=== PATIENT | male | born 1960 | race Caucasian/White ===

== ENCOUNTER 2022-07-11 09:44 | Emergency (ER) | payer MEDICARE, SELFPAY ==
[2022-07-11 10:09] VITALS: BP 137/83; PULSE 69; RESP 16; TEMP 37; O2SAT 98; BMI 25.8
--- NOTE | 2022-07-11 10:21 | XRR_ITS ---
PROCEDURE INFORMATION: Exam: XR Chest Exam date and time: 07/11/2022 10:35 AM Age: 62 years old Clinical indication: Pain; Angina pectoris; Additional info: Chest pain TECHNIQUE: Imaging protocol: Radiologic exam of the chest. Views: 1 view. COMPARISON: No relevant prior studies available. FINDINGS: Lungs: Unremarkable. No consolidation. Pleural spaces: Unremarkable. No pleural effusion. No pneumothorax. Heart/Mediastinum: Unremarkable. No cardiomegaly. Bones/joints: Unremarkable. XR/XR chest 1V portable [id number] IMPRESSION: No acute findings.
--- NOTE | 2022-07-11 10:27 | ECG_ITS ---
[facility] Test Date: 2022-07-11 Pat Name: Haroon Brock Department: Room: Gender: Male Manager Meeting: : 1960 Requested By: Clifford Wu Order Number: [id number] Mark MD: Fransisco Anderson M.D. Measurements Intervals [place] Rate: 69 P: 72 [place]: 180 QRS: -60 QRSD: 121 T: 44 QT: 363 QTc: 391 Interpretive Statements SINUS RHYTHM RIGHT BUNDLE BRANCH BLOCK [120+ ms QRS DURATION, UPRIGHT V1, 40+ ms S IN I/aVL/V4/V5/V6] LEFT ANTERIOR FASCICULAR BLOCK [QRS AXIS <= -45, QR IN I, RS IN II] POSSIBLE ANTERIOR MYOCARDIAL INFARCTION , OF INDETERMINATE AGE [30 ms Q WAVE IN V3/V4, OR R < 0.2 mV IN V4] No previous ECG available for comparison Electronically Signed On 07-11-2022 14:54:25 CDT by Fransisco Anderson M.D. [id number]
[2022-07-11 10:35] LABS: Basophils # 0.1 10^3/uL (0.0-0.1); Eosinophils # 0.7 10^3/uL (0.0-0.8); Eosinophils % 6.9 %; Hematocrit 45.6 % (42.0-52.0); Mean Corpuscular HGB Conc 32.9 g/dL (30.0-36.0); Mean Corpuscular Hemoglobin 30.9 pg (28.0-34.0); Mean Corpuscular Volume 93.8 fl (80-94); Mean Platelet Volume 10.2 fL (7.4-10.4); Monocytes # 0.6 10^3/uL (0.2-0.9); Monocytes % 5.6 %; Neutrophils # 7.74 10^3/uL (1.8-7.7); Neutrophils % 76.2 %; Nucleated Red Blood Cells % 0 %; Platelet Count 264 10^3/cmm (130-400); Red Blood Count 4.86 10^6/uL (4.1-5.3); Red Cell Distribution Width 13.5 % (12.1-15.1); White Blood Count 10.2 10^3/uL (4.0-10.0)
[2022-07-11] MEDS: aspirin 81 mg Chew Tablet 324 MG PO (10:35)
[2022-07-11] MEDS: nitroglycerin 1 gm/inch oint Pkt 1 INCH TOPICAL (10:35)
[2022-07-11 10:44] VITALS: BP 126/88; PULSE 62; O2SAT 96
[2022-07-11 10:58] LABS: Alanine Aminotransferase 17 U/L (0-41); Albumin Level 3.7 g/dL (3.5-5.2); Alkaline Phosphatase 129 U/L (40-130); Anion Gap 13.3 (5-19); Aspartate Amino Transferase 21 U/L (0-40); Blood Urea Nitrogen 15 mg/dL (8-23); Calcium 8.9 mg/dL (8.5-10.5); Carbon Dioxide 27 mmol/L (22-29); Chloride 104 mmol/L (98-107); Globulin 3.3 g/dL (1.3-4.6); Glomerular Filtration Rate 75.7 mL/min (90-130); Glucose 102 mg/dL (65-115); Osmolality Calculated 291 mOsm/kg (285-295); Potassium 4.3 mmol/L (3.5-5.1); Sodium 140 mmol/L (136-145); Total Bilirubin 0.3 mg/dL (0.15-1.2)
[2022-07-11 10:59] LABS: Troponin(5th) Baseline 10 ng/L (0-15)
--- NOTE | 2022-07-11 11:25 | ED_ITS ---
HPI - Chest Pain General: Chief Complaint: Chest Pain Stated Complaint: cp Time Seen by Provider: 07/11/22 10:57 Source: patient and family Mode of arrival: ambulatory Limitations: no limitations History of Present Illness: This patient presents to our emergency department because of concerns about chest pain. He states the chest pain has been present since yesterday. He states its mostly right central with some involvement of his right arm. He states the onset was yesterday he does not recall what he was doing exactly but it was normal activities walking around according to him. He states that the pain seems to worsen with breathing deep. He has had increasing cough over the past number of days. It the cough has been nonproductive and is not any documented fevers. He was a previous smoker. Does have a history of coronary artery disease had stents placed in 5 separate locations. The last was several years ago but he still takes a NOAC. Dates he had COVID in 2019 and has not received any subsequent immunizations. He has not had a flu vaccine. No one else is ill at home. He does relate that he was working on his car yesterday changing spark plugs which did involve him bending over and working on the engine. Denies denies any falls or other trauma. No nausea vomiting diap horesis etc. MD complaint: chest pain Pertinent past history: coronary artery disease and prior [place] Pain location: right chest Pain radiation: right arm Severity: mild Quality: dull Associated symptoms: Reports no associated symptoms; Deny abdominal pain, fever(s), nausea, palpitations, syncope or vomiting Risk Factors: Coronary artery disease risk factors: diabetes Review of Systems Const: Denies: fever(s) or chills Eyes: Denies: change in vision ENMT: Reports: throat pain; Denies: odynophagia or nasal discharge Card: Denies: palpitations, edema, swelling of feet/ankles, syncope or pre- syncope Resp: Reports: non-productive cough; Denies: wheezing or stridor GI: Denies: abdominal pain, nausea, vomiting or diarrhea : Denies: flank pain, difficulty urinating, dysuria or urinary frequency Musc: Denies: neck pain, back pain, extremity pain or extremity swelling Skin/Breast: Denies: rash or pruritus Neuro: Denies: headache(s), numbness in extremities or weakness in extremities Psych: Denies: anxiety or depression Endo: Denies: polyuria or polydipsia Allen/Lymph: Reports: easy bruising Physical Exam Narrative: EXAM NARRATIVE: Patient appears comfortable makes good eye contact speech is goal-directed. Const: COMMON NORMALS: no acute distress, average body habitus, patient oriented x3 and healthy appearing GENERAL APPEARANCE: cooperative and comfortable HENMT: COMMON NORMALS: normocephalic, Normal external nose present, Normal nasal mucous membranes and turbinates present, moist oral mucous membranes and oropharynx normal HEAD & SCALP: normocephalic NOSE: Normal external nose present and Normal nasal mucous membranes and turbinates present Eye: COMMON NORMALS: Equal, round and reactive pupils present, EOMs intact bilaterally and conjunctivae normal CONJUNCTIVA: Yes conjunctivae normal PUPIL: Yes Equal, round and reactive pupils present Neck/C-Spine: COMMON NORMALS: full ROM, no lymphadenopathy, supple, Thyroid no rmal and No carotid bruits THYROID: Thyroid normal Chest: COMMONS NORMALS: normal inspection of the chest OTHER: Tenderness right ches with palpation predominantly over the right side of the sternum and costochondral junction. Elevation of his right arm to greater than 45 degrees of abduction and also reproduces symptoms. Resp: COMMON NORMALS: normal respiratory effort, No retractions, No use of accessory muscles and clear to auscultation bilaterally AUSCULTATION: clear to auscultation bilaterally Cardio: COMMON NORMALS: regular rate, regular rhythm, No murmurs present (Cardio) and Peripheral pulses 2+ throughout RATE: regular rate RHYTHM: regular rhythm PERIPHERAL PULSES: Peripheral pulses 2+ throughout GI: COMMON NORMALS: Normal to inspection, nondistended, normoactive bowel sounds present, Soft to palpation and non-tender PALPATION: Yes Soft to palpation : COMMON NORMALS: Yes no CVA tenderness BLADDER/KIDNEY EXAM: Yes no CVA tenderness Back/Pelvis: COMMON NORMALS: no CVA tenderness, thoracic and lumbar spine normal to inspection, no thoracic nor lumbar tenderness, thoraco-lumbar ROM normal and straight leg raise negative bilaterally Extremity: COMMON NORMALS: normal to inspection, full ROM, capillary refill normal, no clubbing, cyanosis or edema, no calf tenderness and no pedal edema Neuro: COMMON NORMALS: patient oriented x3, moves all extremities, no focal motor deficits and no sensory deficits noted Psych: COMMON NORMALS: mental status grossly normal and cooperative Skin: COMMON NORMALS: no rashes or lesions noted, no wounds, turgor normal and no petechiae GENERAL SKIN EXAM: no rashes or lesions noted and turgor normal Course Vital Signs: Vital signs: Vital Signs Temperature 98.6 F 07/11/22 10:09 Pulse Rate 69 07/11/22 10:09 Respiratory Rate 16 07/11/22 10:09 Blood Pressure 137/83 07/11/22 10:09 Pulse Oximetry 98 07/11/22 10:09 Oxygen Delivery Me thod 07/11/22 10:09 MDM - Chest Pain Medical Decision Making This patient with known history of coronary artery disease presented to our emergency department with greater than 12-hour history of right-sided chest pain with right arm pain. Work-up in the emergency department today reveals reassuring and unchanged serial EKGs as well as negative serial biomarkers in the emergency department. On clinical examination he does have reproducibility of symptoms suggestive of possible musculoskeletal component which she has furt her strength and by his history of having worked on his engine yesterday which undoubtedly and admittedly by him involved bending over and being in awkward positions while changing spark plugs. He is at low risk for thromboembolic issues as he is currently on a DOAC and has had no history of similar issues. No other findings today of worry. I have reassured both he and spouse that at this point time he has extremely low risk of ACS etc. Advised continued observation at home and return immediately for any changing pain, persistent pain, develop a fever dyspnea with exertion chest pain with activity etc. They voiced understanding are stable for discharge at this time. Medical Records I reviewed the patient's medical records. Lab Data I reviewed the patient's lab results. : 07/11/22 10:27 07/11/22 10:27 Radiology Impressions Chest X-Ray 07/11/22 10:21 IMPRESSION: No acute findings. Laboratory Results WBC 10.2 10^3/uL (4.0-10.0) H 07/11/22 10: RBC 4.86 10^6/uL (4.1-5.3) 07/11/22 10: Hgb 15.0 g/dL (11.7-16.6) 07/11/22 10: Hct 45.6 % (42.0-52.0) 07/11/22 10: MCV 93.8 fl (80-94) 07/11/22 10: MCH 30.9 pg (28.0-34.0) 07/11/22 10: MCHC 32.9 g/dL (30.0-36.0) 07/11/22 10: RDW 13.5 % (12.1-15.1) 07/11/22 10: Plt Count 264 10^3/cmm (130-400) 07/11/22 10: MPV 10.2 fL (7.4-10.4) 07/11/22 10:27 Neut % (Auto) 76.2 % 07/11/22 10:27 Lymph % (Auto) 10.0 % 07/11/22 10:27 [place] % (Auto) 5.6 % 07/11/22 10:27 Eos % (Auto) 6.9 % 07/11/22 10:27 Baso % (Auto) 1.0 % 07/11/22 10: Neut # (Auto) 7.74 10^3/uL (1.8-7.7) H 07/11/22 10:27 Lymph # (Auto) 1.0 10^3/uL (0.8-4.8) 07/11/22 10:27 [place] # (Auto) 0.6 10^3/uL (0.2-0.9) 07/11/22 10:27 Eos # (Auto) 0.7 10^3/uL (0.0-0.8) 07/11/22 10:27 Baso # (Auto) 0.1 10^3/uL (0.0-0.1) 07/11/22 10:27 Nucleated RBC % (auto) 0 % 07/11/22 10:27 Nucleated RBCs # 0.0 /100WBC 07/11/22 10:27 Sodium 140 mmol/L (136-145) 07/11/22 10:27 Potassium 4.3 mmol/L (3.5-5.1) 07/11/22 10: Chloride 104 mmol/L (98-107) 07/11/22 10: Carbon Dioxide 27 mmol/L (22-29) 07/11/22 10:27 Anion Gap 13.3 (5-19) 07/11/22 10:27 BUN 15 mg/dL (8-23) 07/11/22 10: Creatinine 1.0 mg/dL (0.7-1.2) 07/11/22 10:27 GFR Calculation 75.7 mL/min (90-130) L 07/11/22 10:27 Glucose 102 mg/dL (65-115) 07/11/22 10:27 Calculated Osmolality 291 mOsm/kg (285-295) 07/11/22 10:27 Calcium 8.9 mg/dL (8.5-10.5) 07/11/22 10:27 Total Bilirubin 0.3 mg/dL (0.15-1.2) 07/11/22 10: AST 21 U/L (0-40) 07/11/22 10:27 ALT 17 U/L (0-41) 07/11/22 10:27 Alkaline Phosphatase 129 U/L (40-130) 07/11/22 10: Troponin T Baseline 10 ng/L (0-15) 07/11/22 10:27 Troponin T 120 Minute 11.18 ng/L (0-15) 07/11/22 12:28 Total Protein 7.0 g/dL (6.6-8.7) 07/11/22 10:27 Albumin 3.7 g/dL (3.5-5.2) 07/11/22 10:27 Globulin 3.3 g/dL (1.3-4.6) 07/11/22 10:27 EKG Data EKG 1: I personally reviewed and interpreted this EKG as follows: Interpretation: Resting EKG reveals a heart rate of 69 bpm. Normal intervals, normal axis. Has a right bundle branch block pattern noted as well as findings suggestive of a left anterior Heema block. No acute ST-T wave changes noted. No prior tracings available in the system. EKG 2: I personally reviewed and interpreted this EKG as follows: Interpretation: Second EKG this visit reveals unchanged appearance with a ventricular rate of 67 bpm normal intervals. Normal QRS normal QTC. Has a leftward axis consistent with right bundle branch block with left anterior Heema block. No acute or changing ST segments noted at this time. Discharge Plan Discharge Patient Disposition: Home Clinical Impression: Chest pain Condition: Stable Prescriptions: No Action bupropion HCl 150 mg Tablet Sustained-Release 12 Hr 150 mg PO BID atorvastatin 80 mg Tablet 80 mg PO QPM Pepcid 20 mg Tablet 20 mg PO DAILY Iron (ferrous sulfate) 325 mg (65 mg iron) Tablet 325 mg PO DAILY Nitrostat 0.4 mg Tablet, Sublingual 0.4 mg SUBLINGUAL Q5M PRN (Reason: Chest Pain) Rx Instructions: do not exceed 3 doses per episode metoprolol succinate 25 mg Tablet Extended Release 24 Hr 25 mg PO BEDTIME metformin 500 mg Tablet Extended Release 24 Hr 500 mg PO DAILY Super B Complex Capsule 1 cap PO DAILY Co Q-10 100 mg Capsule 100 mg PO QPM Vitamin D3 50 mcg (2,000 unit) Capsule 50 mcg PO DAILY prasugrel 10 mg Tablet 10 mg PO DAILY copper gluconate 2 mg Capsule 2 mg PO DAILY aspirin 325 mg Capsule 325 mg PO DAILY Men's 50 Plus Multivitamin 400-20-370 mcg Tablet 1 tab PO DAILY Discharge Orders: Discharge ED (Routine); Ordered 07/11/22 Ordered By: Maxime Scott Referrals: Tiffanie Mcgovern MD [Physician] - 1 month (ED referral for CAD) Discharge Diet: Usual diet Discharge Activity: Resume usual activity Patient Instructions: Opioid Safety, Pain Management Activity Restrictions/Additional Instructions: Continue all your usual medications. You may use acetaminophen or Tylenol in the usual over the counter doses for any musculoskeletal pains. If you develop increasing, changing pain or other symptoms as we discussed such as difficulty breathing, fever etc. return to this or the nearest emergency department immediately. Coding Level of Care Code ED [place] Presser for [facility] Exam Comprehensive
[2022-07-11 11:44] VITALS: PULSE 70; O2SAT 95
--- NOTE | 2022-07-11 12:47 | ECG_ITS ---
[facility] Test Date: 2022-07-11 Pat Name: Haroon Brock Department: Room: Gender: Male Cpa Tax: : 1960 Requested By: Clifford Wu Order Number: [id number] Reading MD: Fransisco Anderson M.D. Measurements Intervals [place] Rate: 67 P: 59 DC: 176 QRS: -73 QRSD: 140 T: 44 QT: 392 QTc: 414 Interpretive Statements SINUS RHYTHM RIGHT BUNDLE BRANCH BLOCK [120+ ms QRS DURATION, UPRIGHT V1, 40+ ms S IN I/aVL/V4/V5/V6] LEFT ANTERIOR FASCICULAR BLOCK [QRS AXIS <= -45, QR IN I, RS IN II] POSSIBLE ANTERIOR MYOCARDIAL INFARCTION , OF INDETERMINATE AGE [30 ms Q WAVE IN V3/V4, OR R < 0.2 mV IN V4] Compared to ECG 07/11/2022 10:18:15 No significant changes Electronically Signed On 07-11-2022 14:57:41 CDT by Fransisco Anderson M.D. [id number]
[2022-07-11 12:55] LABS: Troponin 5 2HR 11.18 ng/L (0-15)
[2022-07-11] MEDS: ketorolac 30 mg/mL INJ 15 MG IVP (13:09)
[2022-07-11 13:13] LABS: Troponin 5 2HR Delta 1.18 ABS# (0-10)
[2022-07-11 13:23] VITALS: BP 114/70; PULSE 72; O2SAT 94
== END 2022-07-11 13:22 | disposition home or self-care (01) ==
PROVIDERS: Family Medicine; Emergency Provider Emergency Medicine
DX: R07.9 Chest pain, unspecified (principal); Z79.82 Long term (current) use of aspirin; Z79.84 Long term (current) use of oral hypoglycemic drugs
CPT/HCPCS: 36415; 71045; 80053; 84484; 85025; 93005; 96374; 99285; J1885

== ENCOUNTER 2022-07-17 12:43 | Emergency (ER) | payer MEDICARE, SELFPAY ==
[2022-07-17] VITALS (7 sets, daily range): BP systolic 119–140; BP diastolic 81–89; PULSE 88–118; RESP 17–25; TEMP 36.4; O2SAT 93–96; BMI 25.8
--- NOTE | 2022-07-17 13:01 | CTR_ITS ---
PROCEDURE INFORMATION: Exam: CTA Chest With Contrast Exam date and time: 07/17/2022 2:42 PM Age: 62 years old Clinical indication: Other: Hemoptysis TECHNIQUE: Imaging protocol: Computed tomographic angiography of the chest with contrast. 3D rendering (Not supervised by radiologist): MIP and/or 3D reconstructed images were created by the technologist. Radiation optimization: All CT scans at this facility use at least one of these dose optimization techniques: automated exposure control; mA and/or kV adjustment per patient size (includes targeted exams where dose is matched to clinical indication); or iterative reconstruction. Contrast material: OMNI 350; Contrast volume: 82 ml; Contrast route: INTRAVENOUS (IV); COMPARISON: CR XR chest 1V portable [id number] 07/11/2022 10:35 AM RADIATION DOSE METRICS: Total DLP (mGy-cm): 348.39 FINDINGS: Pulmonary arteries: Normal. No pulmonary emboli. Aorta: Unremarkable. No aortic aneurysm. No aortic dissection. 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 Pleural spaces: Unremarkable. No pneumothorax. No pleural effusion. Heart: Severe calcified coronary artery disease. Proximal LAD endovascular stent. Lymph nodes: Unremarkable. No enlarged lymph nodes. Stomach and bowel: Previous gastroplasty. Bones/joints: Unremarkable. No acute fracture. Soft tissues: Unremarkable. CT/CT angio chest PE protcl [id number] IMPRESSION: 1. 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 2. Severe calcified coronary artery disease. 3. Proximal LAD endovascular stent.
--- NOTE | 2022-07-17 13:01 | XRR_ITS ---
PROCEDURE INFORMATION: Exam: XR Chest Exam date and time: 07/17/2022 2:48 PM Age: 62 years old Clinical indication: Cough with hemorrhage TECHNIQUE: Imaging protocol: Radiologic exam of the chest. Views: 1 view. COMPARISON: CR XR chest 1V portable [id number] 07/11/2022 10:35 AM FINDINGS: Lungs: Left lower lobe pneumonia behind the left heart. Pleural spaces: Unremarkable. No pleural effusion. No pneumothorax. Heart/Mediastinum: Unremarkable. No cardiomegaly. Bones/joints: Unremarkable. XR/XR chest 1V portable [id number] IMPRESSION: Left lower lobe pneumonia behind the left heart.
--- NOTE | 2022-07-17 13:03 | ED_ITS ---
HPI - SOB/Dyspnea General: Chief Complaint: Shortness of Breath/Dyspnea Stated Complaint: SOB, Coughing up blood Time Seen by Provider: 07/17/22 12:54 History of Present Illness: HPI Narrative: 62-year-old male with a history of coronary artery disease with multiple stents, currently on aspirin and Brilinta who presents with a 3-week history of a productive cough. The cough was initially productive of green sputum but now for the past 24 hours, he has had gross hemoptysis. Today he started coughing up clots of blood. He is also been having midsternal chest pain, different than his cardiac pain. He has been having chills and sweats. No prior history of DVT or pulmonary embolism. He is a past smoker. He is also diabetic. Associated symptoms: Reports chest pain and hemoptysis Review of Systems General: Reports: ROS unobtainable due to medical condition Card: Reports: chest pain Resp: Reports: dyspnea, productive cough and hemoptysis Physical Exam Const: COMMON NORMALS: healthy appearing, alert and well nourished; apparent distress OTHER: patient is violently coughing HENMT: COMMON NORMALS: normocephalic, atraumatic, moist oral mucous membranes and oropharynx normal HEAD & SCALP: normocephalic and atraumatic Neck/C-Spine: GENERAL: Yes normal visual inspection and Yes trachea midline Resp: COMMON NORMALS: negative for normal respiratory effort EFFORT & INSPECTION: Yes tachypneic, Yes respiratory distress, Yes Actively coughing and Yes audible wheezes AUSCULTATION: diminished lung sounds Cardio: COMMON NORMALS: regular rhythm, S1 normal heart sound present and S2 normal heart sound present RATE: tachycardic RHYTHM: regular rhythm HEART SOUNDS: S1 normal heart sound present and S2 normal heart sound present Extremity: GENERAL: No calf tenderness and No edema Neuro: SENSORIUM/ORIENTATION: Yes alert Skin: GENERAL SKIN EXAM: other (diaphoretic) Course ED course: Patient's been given an IV fluid bolus, 30 cc/kg. Heart rate and blood pressure have normalized. His heart rate is in the 90s now. He has been given IV cefepime and Zithromax. Chest x-ray he does have a left lower lobe infiltrate. 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 The patient's hemoptysis has stopped after TXA and cough suppressants including morphine and Tessalon. Patient is still continuing to have difficulty breathing despite IV steroids and a breathing treatment. We will repeat his DuoNeb nebulizer treatments. With the gross hemoptysis and sepsis, the patient will need transfer to a facility with pulmonary and bronchoscopy capabilities. I have contacted [facility]. Reevaluation(s): Reevaluation #1: Coughing has improved after IV morphine and a DuoNeb nebulizer treatment. Saturations remained stable. Heart rate has improved a little. Time: 13:42 Consultations: Consultation #1: Discussed with pulmonology here who is concerned that we do not have emergent bronchoscopy or interventional radiology available today. He agrees that the patient needs transfer Time: 16:03 Consultation #2: Spoke with Dr. Feliciano at [facility] ICU who accepts the patient for direct admission Time: 16:07 Vital Signs: Vital signs: Vital Signs Temperature 97.6 F 07/17/22 12:46 Pulse Rate 118 H 07/17/22 12:46 Respiratory Rate 25 H 07/17/22 14:48 Blood Pressure 140/89 07/17/22 12:46 Pulse Oximetry 96 07/17/22 12:46 Oxygen Delivery Me thod 07/17/22 12:46 MDM - SOB/Dyspnea Medical Decision Making 62-year-old male who presents with gross hemoptysis. The patient is in acute respiratory distress, tachypneic and tachycardic, room air saturations are stabl e at 97%. Will start on IV, give him some morphine to help suppress his cough as well as IV Solu-Medrol and Tessalon Perles. We will also give him a DuoNeb nebulizer treatment. The patient will need a chest x-ray and a CTA to rule out pulmonary emboli, tumors or possible infections and/or other etiologies of his hemoptysis. If his gross hemoptysis continues, the patient may need transfer for bronchoscopy capabilities. With the patient on aspirin and Brilinta, will give IV TXA to help control his hemoptysis. Differential Diagnosis Likely acute exacerbation of chronic obstructive airways disease, congestive heart failure, community acquired pneumonia, asthma with exacerbation and pulmonary embolism Lab Data Patient is a leukocytosis with a white blood cell count of 13.6. He is also got an elevated lactic acid of 5.3. CRP is elevated at 29.7. Hemoglobin is normal at 15.5, hematocrit 47.7. Platelet count is normal at 335. Electrolytes are normal. BUN 14, creatinine 1.0. : 07/17/22 13:19 07/17/22 13:19 Labs/Radiology: Radiology Impressions Chest CTA 07/17/22 13:01 IMPRESSION: 1. 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 2. Severe calcified coronary artery disease. 3. Proximal LAD endovascular stent. Chest X-Ray 07/17/22 13:01 IMPRESSION: Left lower lobe pneumonia behind the left heart. Laboratory Results WBC 13.6 10^3/uL (4.0-10.0) H 07/17/22 13:19 RBC 5.20 10^6/uL (4.1-5.3) 07/17/22 13:19 Hgb 15.5 g/dL (11.7-16.6) 07/17/22 13:19 Hct 47.7 % (42.0-52.0) 07/17/22 13:19 MCV 91.7 fl (80-94) 07/17/22 13:19 MCH 29.8 pg (28.0-34.0) 07/17/22 13:19 MCHC 32.5 g/dL (30.0-36.0) 07/17/22 13:19 RDW 13.1 % (12.1-15.1) 07/17/22 13:19 Plt Count 335 10^3/cmm (130-400) 07/17/22 13:19 MPV 10.1 fL (7.4-10.4) 07/17/22 13:19 Neut % (Auto) 69.5 % 07/17/22 13:19 Lymph % (Auto) 18.1 % 07/17/22 13:19 [place] % (Auto) 7.8 % 07/17/22 13:19 Eos % (Auto) 3.3 % 07/17/22 13:19 Baso % (Auto) 0.7 % 07/17/22 13:19 Neut # (Auto) 9.45 10^3/uL (1.8-7.7) H 07/17/22 13:19 Lymph # (Auto) 2.5 10^3/uL (0.8-4.8) 07/17/22 13:19 [place] # (Auto) 1.1 10^3/uL (0.2-0.9) H 07/17/22 13:19 Eos # (Auto) 0.5 10^3/uL (0.0-0.8) 07/17/22 13:19 Baso # (Auto) 0.1 10^3/uL (0.0-0.1) 07/17/22 13:19 Nucleated RBC % (auto) 0 % 07/17/22 13:19 Nucleated RBCs # 0.0 /100WBC 07/17/22 13:19 Sodium 140 mmol/L (136-145) 07/17/22 13:19 Potassium 4.8 mmol/L (3.5-5.1) 07/17/22 13:19 Chloride 102 mmol/L (98-107) 07/17/22 13:19 Carbon Dioxide 21 mmol/L (22-29) L 07/17/22 13:19 Anion Gap 21.8 (5-19) H 07/17/22 13:19 BUN 14 mg/dL (8-23) 07/17/22 13:19 Creatinine 1.0 mg/dL (0.7-1.2) 07/17/22 13:19 GFR Calculation 75.7 mL/min (90-130) L 07/17/22 13:19 Glucose 124 mg/dL (65-115) H 07/17/22 13:19 Calculated Osmolality 292 mOsm/kg (285-295) 07/17/22 13:19 Lactic Acid 5.3 mmol/L (0.5-2.2) H* 07/17/22 13:19 Lactic Acid (Sepsis) 2.8 mmol/L (0.5-2.2) H 07/17/22 15:47 Calcium 9.9 mg/dL (8.5-10.5) 07/17/22 13:19 Total Bilirubin 0.5 mg/dL (0.15-1.2) 07/17/22 13:19 AST 27 U/L (0-40) 07/17/22 13:19 ALT 22 U/L (0-41) 07/17/22 13:19 Alkaline Phosphatase 124 U/L (40-130) 07/17/22 13:19 C-Reactive Protein 29.7 mg/L (0.0-4.9) H 07/17/22 13:19 NT-Pro-B Natriuret Pep 66 pg/mL (0-125) 07/17/22 13:19 Total Protein 8.1 g/dL (6.6-8.7) 07/17/22 13:19 Albumin 4.1 g/dL (3.5-5.2) 07/17/22 13:19 Globulin 4.0 g/dL (1.3-4.6) 07/17/22 13:19 Blood Type A Positive 07/17/22 13:30 Rho(D) Type Positive 07/17/22 13:30 Antibody Screen Negative 07/17/22 13:30 Critical Care Time Critical Care Time: Critical Care Time: Yes Total Critical Care Time: 90 Attestation: Rectal care time involves evaluation of the patient, obtaining history from the patient and his , ordering tests and evaluating the results, reevaluating the patient, managing hemodynamic instability as well as sepsis and hemorrhage. Discussing with consultants and transferring facility Discharge Plan Discharge Patient Disposition: Xfer Intermediate Care Fac Clinical Impression: Major hemoptysis, Pneumonia, Sepsis Condition: Stable Prescriptions: No Action bupropion HCl 150 mg Tablet Sustained-Release 12 Hr 150 mg PO BID atorvastatin 80 mg Tablet 80 mg PO QPM famotidine [Pepcid] 20 mg Tablet 20 mg PO DAILY ferrous sulfate [Iron (ferrous sulfate)] 325 mg (65 mg iron) Tablet 325 mg PO DAILY nitroglycerin [Nitrostat] 0.4 mg Tablet, Sublingual 0.4 mg SUBLINGUAL Q5M PRN (Reason: Chest Pain) Rx Instructions: do not exceed 3 doses per episode metoprolol succinate 25 mg Tablet Extended Release 24 Hr 25 mg PO BEDTIME metformin 500 mg Tablet Extended Release 24 Hr 500 mg PO DAILY vitamin B complex [Super B Complex] Capsule 1 cap PO DAILY coenzyme Q10 [Co Q-10] 100 mg Capsule 100 mg PO QPM cholecalciferol (vitamin D3) [Vitamin D3] 50 mcg (2,000 unit) Capsule 50 mcg PO DAILY prasugrel 10 mg Tablet 10 mg PO DAILY copper gluconate 2 mg Capsule 2 mg PO DAILY aspirin 325 mg Capsule 325 mg PO DAILY Men's 50 Plus Multivitamin 400-20-370 mcg Tablet 1 tab PO DAILY Coding Level of Care Code ED 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
[2022-07-17] MEDS: ondansetron 2 mg/ML SDV 2 mL 4 MG IVP (13:24)
[2022-07-17 13:29] LABS: Basophils # 0.1 10^3/uL (0.0-0.1); Basophils % 0.7 %; Eosinophils # 0.5 10^3/uL (0.0-0.8); Eosinophils % 3.3 %; Hematocrit 47.7 % (42.0-52.0); Hemoglobin 15.5 g/dL (11.7-16.6); Lymphocytes # 2.5 10^3/uL (0.8-4.8); Lymphocytes % 18.1 %; Mean Corpuscular HGB Conc 32.5 g/dL (30.0-36.0); Mean Corpuscular Hemoglobin 29.8 pg (28.0-34.0); Mean Corpuscular Volume 91.7 fl (80-94); Mean Platelet Volume 10.1 fL (7.4-10.4); Monocytes # 1.1 10^3/uL (0.2-0.9); Monocytes % 7.8 %; Neutrophils # 9.45 10^3/uL (1.8-7.7); Neutrophils % 69.5 %; Nucleated Red Blood Cells % 0 %; Platelet Count 335 10^3/cmm (130-400); Red Cell Distribution Width 13.1 % (12.1-15.1); White Blood Count 13.6 10^3/uL (4.0-10.0)
[2022-07-17] MEDS: morphine 4 mg/mL SDV 1 mL IVP ×4 (13:31→19:05)
[2022-07-17] MEDS: iohexol 350 mg/mL 500 mL Btl (per mL) IV (13:46)
--- NOTE | 2022-07-17 13:57 | PC.NURSE ---
Patient on continuous CM and Sp02 at bedside.
[2022-07-17 13:58] LABS: Lactic Sepsis W/Reflex 5.3 mmol/L (0.5-2.2)
[2022-07-17 14:02] LABS: Alanine Aminotransferase 22 U/L (0-41); Albumin Level 4.1 g/dL (3.5-5.2); Alkaline Phosphatase 124 U/L (40-130); Aspartate Amino Transferase 27 U/L (0-40); Blood Urea Nitrogen 14 mg/dL (8-23); C Reactive Protein 29.7 mg/L (0.0-4.9); Calcium 9.9 mg/dL (8.5-10.5); Carbon Dioxide 21 mmol/L (22-29); Chloride 102 mmol/L (98-107); Glomerular Filtration Rate 75.7 mL/min (90-130); Glucose 124 mg/dL (65-115); NT Pro B Type Natriuretic Pept 66 pg/mL (0-125); Osmolality Calculated 292 mOsm/kg (285-295); Sodium 140 mmol/L (136-145); Total Bilirubin 0.5 mg/dL (0.15-1.2); Total Protein 8.1 g/dL (6.6-8.7)
[2022-07-17 14:04] LABS: Anion Gap 21.8 (5-19); Potassium 4.8 mmol/L (3.5-5.1)
[2022-07-17] MEDS: azithromycin 500 MG in sodium chloride 0.9% 250 ML 250 MG IV (14:38)
[2022-07-17] MEDS: cefepime 2,000 MG in sodium chloride 0.9% (plus) 50 ML 100 MG IV (14:48)
[2022-07-17] MEDS: benzonatate 100 mg Capsule 200 MG PO (14:53)
[2022-07-17 15:04] LABS: Reflex Lactate Order REFLEX LACTIC ORDERD
[2022-07-17 16:07] LABS: Lactic Acid level (Lactate) 2.8 mmol/L (0.5-2.2)
[2022-07-17] MEDS: sodium chloride 0.9% 2,313.33 ML 2313.33 ML IV (16:09)
[2022-07-17 17:36] LABS: Adenovirus Not Detected (NOT DETECT); Chlamydia Pneumoniae Not Detected (NOT DETECT); Coronavirus 229E,HKU1,NL63,OC4 Not Detected (NOT DETECT); Human Metapneumovirus Not Detected (NOT DETECT); Human Rhinovirus/Enterovirus Not Detected (NOT DETECT); Influenza A Not Detected (NOT DETECT); Influenza A H1 Not Detected (NOT DETECT); Influenza A H1-2009 Not Detected (NOT DETECT); Influenza A H3 Not Detected (NOT DETECT); Influenza B Not Detected (NOT DETECT); Mycoplasma Pneumoniae Not Detected (NOT DETECT); Parainfluenza Virus Type 1 Detected (NOT DETECT); Parainfluenza Virus Type 2 Not Detected (NOT DETECT); Parainfluenza Virus Type 3 Not Detected (NOT DETECT); Parainfluenza Virus Type 4 Not Detected (NOT DETECT); Respiratory Syncytial Virus A Not Detected (NOT DETECT); Respiratory Syncytial Virus B Not Detected (NOT DETECT); SARS-COV-2 Not Detected (NOT DETECT)
[2022-07-17 17:38] LABS: Parainfluenza Virus Type 1 Detected (NOT DETECT); Parainfluenza Virus Type 2 Not Detected (NOT DETECT); Parainfluenza Virus Type 3 Not Detected (NOT DETECT); Parainfluenza Virus Type 4 Not Detected (NOT DETECT); Results from Genmark
== END 2022-07-17 20:04 | disposition intermediate care facility (04) ==
PROVIDERS: Emergency Provider Emergency Medicine
DX: R04.2 Hemoptysis (principal); A41.9 Sepsis, unspecified organism; J18.9 Pneumonia, unspecified organism
CPT/HCPCS: 71045; 71275; 80053; 83605; 83880; 85025; 86140; 86850; 86900; 87040; 87070; 87205; 87631; 87635; 96365; 96366; 96367; 96375; 99285; J0456; J0692; J2270; J2405; J2930; J7030; J7050; Q9967

== ENCOUNTER → 2022-09-15 14:42 | Outpatient (BNVA) | payer MEDICARE, SELFPAY | PROVIDERS: PCP Nurse Practitioner Family; Visit Provider Internal Medicine Cardiovascular Disease | DX: I25.10 Atherosclerotic heart disease of native coronary artery without angina pectoris (principal); E78.5 Hyperlipidemia, unspecified; E11.9 Type 2 diabetes mellitus without complications; Z79.84 Long term (current) use of oral hypoglycemic drugs; J44.9 Chronic obstructive pulmonary disease, unspecified; K21.9 Gastro-esophageal reflux disease without esophagitis; Z87.891 Personal history of nicotine dependence; I25.2 Old myocardial infarction | CPT/HCPCS: 99204; Q3014 ==

== ENCOUNTER 2022-10-13 01:00 | Outpatient (CLI) | payer MEDICARE, SELFPAY | END 2022-10-13 23:00 | disposition home or self-care (01) | LOC: RAD 10-14 11:12 | PROVIDERS: PCP Nurse Practitioner Family; Visit Provider Internal Medicine Pulmonary Disease | DX: J18.9 Pneumonia, unspecified organism (principal); J44.9 Chronic obstructive pulmonary disease, unspecified; J45.909 Unspecified asthma, uncomplicated; I25.10 Atherosclerotic heart disease of native coronary artery without angina pectoris; R06.02 Shortness of breath | CPT/HCPCS: 36415; 82785; 85025; 86003; 99204 ==

== ENCOUNTER 2022-10-31 07:46 | Outpatient (CLI) | payer MEDICARE, SELFPAY ==
--- NOTE | 2022-10-31 07:30 | CT_ITS ---
WS: [id number] CT CHEST TECHNIQUE: Noncontrast CT of the chest with coronal and sagittal reformatted images. CLINICAL INFORMATION: resolution of pneumonia COMPARISON: CT July 17, 2022 DLP: 349.[address] scans at [facility] use at least one of these dose optimization techniques: automated e xposure control; mA and/or kV adjustment per patient size (includes targeted exams where dose is matc hed to clinical indication); or iterative reconstruction. FINDINGS: Mild chronic emphysematous changes. Previously described pneumonia in the LEFT lower lobe has essenti ally resolved. A few residual mucous plugs with associated bronchiectasis. No new pulmonary infiltrat es. Normal caliber thoracic aorta. Aortic calcification. Coronary stent. Small esophageal hiatal delfino ia. Postoperative changes GE junction. Adrenal glands are normal. 2 noncalcified ovoid nodules LEFT lower lobe measuring 7-8 mm. This appears unchanged. No mediastinal or hilar lymphadenopathy. No axillary lymphadenopathy. Tiny noncalcified nodule in the LEFT fissure measuring [address]/CT chest wo con [id number] IMPRESSION: 1. Previously described LEFT lower lobe lobe pneumonia has essentially resolve d with a few residual mucous plugs. Bronchiectasis LEFT lower lobe. 2. Stable noncalcified nodules LEFT lower lobe measuring 7 to 8 mm. Recommend 6 month follow-up. 3. No new or progressed infiltrates. 4. Mild chronic emphysematous changes.
== END 2022-10-31 07:47 | disposition home or self-care (01) ==
PROVIDERS: PCP Nurse Practitioner Family; Visit Provider Internal Medicine Pulmonary Disease
DX: J18.9 Pneumonia, unspecified organism (principal); J44.9 Chronic obstructive pulmonary disease, unspecified; J45.909 Unspecified asthma, uncomplicated; R91.8 Other nonspecific abnormal finding of lung field
CPT/HCPCS: 71250

== ENCOUNTER → 2022-12-15 09:48 | Outpatient (BNVA) | payer MEDICARE, SELFPAY | PROVIDERS: PCP Nurse Practitioner Family; Visit Provider Internal Medicine Pulmonary Disease | DX: J44.9 Chronic obstructive pulmonary disease, unspecified (principal); J45.909 Unspecified asthma, uncomplicated; I25.10 Atherosclerotic heart disease of native coronary artery without angina pectoris; Z87.891 Personal history of nicotine dependence; Z95.5 Presence of coronary angioplasty implant and graft | CPT/HCPCS: 99214 ==

== ENCOUNTER 2023-01-10 08:04 | Outpatient (CLI) | payer MEDICARE, SELFPAY ==
[2023-01-10 08:10] VITALS: BP 124/84; BP 146/95
[2023-01-10 08:31] VITALS: PULSE 65; RESP 16; O2SAT 98
[2023-01-10] MEDS: albuterol 2.5 mg/3 mL Neb INHALATION (08:31)
[2023-01-10 08:36] VITALS: PULSE 68
== END 2023-01-10 08:05 | disposition home or self-care (01) ==
LOC: RT 08:06
PROVIDERS: PCP Nurse Practitioner Family; Visit Provider Internal Medicine Pulmonary Disease
DX: J45.909 Unspecified asthma, uncomplicated (principal); J44.9 Chronic obstructive pulmonary disease, unspecified
CPT/HCPCS: 94060; 94618; 94726; 94729; J7613

== ENCOUNTER → 2023-01-27 11:32 | Outpatient (BNVA) | payer MEDICARE, SELFPAY | PROVIDERS: PCP Family Medicine; Visit Provider Family Medicine | DX: M79.644 Pain in right finger(s) (principal) | CPT/HCPCS: 73130 ==

== ENCOUNTER → 2023-02-28 09:11 | Outpatient (BNVA) | payer MEDICARE, SELFPAY | PROVIDERS: PCP Family Medicine; Visit Provider Anesthesiology Pain Medicine | DX: M54.2 Cervicalgia (principal); M79.601 Pain in right arm; M79.602 Pain in left arm; M79.604 Pain in right leg; M79.605 Pain in left leg | CPT/HCPCS: 99203 ==

== ENCOUNTER → 2023-03-03 08:24 | Outpatient (BNVA) | payer MEDICARE, SELFPAY | PROVIDERS: PCP Family Medicine; Referring Provider Family Medicine; Visit Provider Student in an Organized Health Care Education/Training Program | DX: M18.11 Unilateral primary osteoarthritis of first carpometacarpal joint, right hand (principal); M19.031 Primary osteoarthritis, right wrist; M79.644 Pain in right finger(s) | CPT/HCPCS: 20600; 20610; 99203; J3301; J3490 ==

== ENCOUNTER → 2023-03-16 14:44 | Outpatient (BNVA) | payer MEDICARE, SELFPAY | PROVIDERS: PCP Family Medicine; Visit Provider Internal Medicine Cardiovascular Disease | DX: I25.10 Atherosclerotic heart disease of native coronary artery without angina pectoris (principal); J44.9 Chronic obstructive pulmonary disease, unspecified; Z87.891 Personal history of nicotine dependence; I25.2 Old myocardial infarction; R06.02 Shortness of breath; E78.5 Hyperlipidemia, unspecified; E11.9 Type 2 diabetes mellitus without complications; K21.9 Gastro-esophageal reflux disease without esophagitis; Z79.84 Long term (current) use of oral hypoglycemic drugs | CPT/HCPCS: 99214 ==

== ENCOUNTER → 2023-03-30 08:40 | Outpatient (BNVA) | payer MEDICARE, SELFPAY | PROVIDERS: PCP Family Medicine; Visit Provider Anesthesiology Pain Medicine | DX: M54.2 Cervicalgia (principal); M54.50 Low back pain, unspecified; M79.601 Pain in right arm; M79.602 Pain in left arm; M79.604 Pain in right leg; M79.605 Pain in left leg | CPT/HCPCS: 99214 ==

== ENCOUNTER 2023-03-31 07:57 | Outpatient (CLI) | payer MEDICARE, SELFPAY ==
--- NOTE | 2023-03-31 | ECG_ITS ---
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 Interpretive Statements NAME OF STUDY: LEXISCAN SESTAMIBI STRESS TEST INDICATION: SOB, CAD PROCEDURE: At the baseline, the blood pressure was 113/79 mmHg with a heart rate of 53 bpm. The electrocardiogram showed sinus bradycardia, left atrial fascicular block. Possible old anterior infarct. IVCD. The Lexiscan was infused over a period of 20 seconds. A total of 0.4 milligrams of Lexiscan was infused. The stress phase was continued for a total of 5 minutes. Heart rate at the end of the stress phase was 81 bpm with a blood pressure 105/75 mm Hg. The EKG at the peak infusion revealed sinus rhythm with no significant ST-T wave changes. Sestamibi was injected 20 seconds after the Lexiscan infusion. Blood pressure at the end of the recovery phase was 137/77 mmHg with a heart rate of 62 beats per minute. CONCLUSION: 1. No significant EKG changes with the LexiScan infusion. 2. No LexiScan induced chest pain or cardiac arrhythmia. 3. Normal blood pressure and heart rate response. 4. Sestamibi/sestamibi perfusion scan pending; see separate report. Electronically Signed On 04-02-2023 12:38:22 CDT by Joy Ferrer M.D. [id number]
[2023-03-31 08:04] VITALS: BMI 25.5
--- NOTE | 2023-03-31 08:04 | NMCV_ITS ---
NM purvi perf SPECT r/s* [id number] Haroon Brock Age: 62 Gender: M : 1960 Exam Date: 03/31/2023 09:46 Ordering Phys: Joy Ferrer MD ([email or web address]) Technologist: PETRA Linares Exam Location: [facility] Indications: SHORTNESS OF BREATH, ATHEROSCLEROTIC HEART DISEASE STRESS TEST [facility] IMAGE PROTOCOL Rest/Stress 1 Lexiscan Day Radiopharmaceutical Dose (mCi) Administration Site Administered by Rest: Tc-99m 10.5 IV PETRA Springer Sestamibi Stress:Tc-99m 32.4 IV PETRA Linares Sestamibi Rest: 31-Mar-2023 60 Discovery 630 Stress: 31-Mar-2023 30 Discovery 630 0.4mg Lexiscan. Images obtained in supine and prone position. SPECT RESULTS Technical Quality: Excellent Raw Data Analysis: Normal Image Corrections: No attenuation or motion correction applied Summed Stress Score: 3 Summed Rest Score: 8 Summed Difference Score: 0 PERFUSION FINDINGS Medium sized perfusion abnormality of basal to apical inferior, mid inferolateral and mid inferoseptal dyson on rest images with improved tracer uptake on stress images. This is suggestive of attenuation artifact. FUNCTIONAL RESULTS (calculated via Gated SPECT) Stress Image LV EF (%): 73 Stress EDV (mL):99 TID: 1.13 Stress ESV (mL):27 FUNCTIONAL FINDINGS: The left ventricle is normal in size. Transient Ischemia Dilatation of 1.1. The left ventricular ejection fraction is normal with a value of 73%. There is normal left ventricular wall thickening. IMPRESSIONS 1. Myocardial perfusion imaging is normal. 2. Overall left ventricular systolic function is normal without regional wall motion abnormalities, LVEF=73%. 3. No EKG changes with Lexiscan infusion. 4. Scan indicates low risk for cardiac events. Joy Ferrer MD (Electronically Signed) Final Date: 02 April 2023 12:41 S
[2023-03-31] MEDS: regadenoson 0.4 Mg/5 ml Syringe IVP (10:20)
[2023-03-31 10:36] VITALS: BP 137/77; PULSE 67
== END 2023-03-31 07:58 | disposition home or self-care (01) ==
PROVIDERS: PCP Family Medicine; Visit Provider Internal Medicine Cardiovascular Disease
DX: R06.02 Shortness of breath (principal); I25.10 Atherosclerotic heart disease of native coronary artery without angina pectoris
CPT/HCPCS: 36415; 78452; 93017; 96374; A9500; J2785

== ENCOUNTER → 2023-04-24 12:30 | Outpatient (BNVA) | payer MEDICARE, SELFPAY | PROVIDERS: PCP Family Medicine; Visit Provider Anesthesiology Pain Medicine | DX: M47.812 Spondylosis without myelopathy or radiculopathy, cervical region (principal); M47.816 Spondylosis without myelopathy or radiculopathy, lumbar region | CPT/HCPCS: 64490 ==

== ENCOUNTER → 2023-04-28 11:12 | Outpatient (BNVA) | payer MEDICARE, SELFPAY | PROVIDERS: PCP Family Medicine; Visit Provider Family Medicine | DX: E11.9 Type 2 diabetes mellitus without complications (principal); J44.9 Chronic obstructive pulmonary disease, unspecified; J45.909 Unspecified asthma, uncomplicated; K21.9 Gastro-esophageal reflux disease without esophagitis; I25.10 Atherosclerotic heart disease of native coronary artery without angina pectoris; E78.5 Hyperlipidemia, unspecified; M54.2 Cervicalgia | CPT/HCPCS: 80053; 83036 ==

== ENCOUNTER 2023-05-01 07:34 | Outpatient (CLI) | payer MEDICARE, SELFPAY ==
--- NOTE | 2023-05-01 08:00 | CT_ITS ---
WS: [id number] CT CHEST TECHNIQUE: Noncontrast CT of the chest with coronal and sagittal reformatted images. CLINICAL INFORMATION: follow up lung nodule COMPARISON: None. DLP: 225.[address] scans at [facility] use at least one of these dose optimization techniques: automated e xposure control; mA and/or kV adjustment per patient size (includes targeted exams where dose is matc hed to clinical indication); or iterative reconstruction. FINDINGS: Previously described pneumonia in the LEFT lower lobe is progressed compared to 10/31/2022 with slight increase in the patchy infiltrates and mucous plugging. Bronchiectasis LEFT lower lobe. Previously d escribed small nodules in the LEFT lower lobe not as well visualized today due to the new patchy coar se infiltrates. Tiny 3 mm nodule LEFT fissure is unchanged. Slight interstitial thickening RIGHT lower lobe posteriorly and laterally unchanged in appearance. Mi ld chronic emphysematous changes. Coronary stent. Normal caliber thoracic aorta. Aortic calcification. No mediastinal or hilar lymphadenopathy. Talbot ry calcification. No axillary lymphadenopathy. Small esophageal hiatal hernia. Prior postoperative changes involving the stomach. Adrenal glands are normal. Partially visualized lobulated RIGHT renal lesion measuring 1.7 cm with slight increased att enuation. This not definitely cystic and recommend follow-up with ultrasound. IMPRESSION: 1. Progressed infiltrates in the LEFT lower lobe today compared to 10/31/2022 with patchy coarse nodu lar infiltrates compatible with pneumonia. 2. Cystic bronchiectasis LEFT lower lobe. 3. No significant pleural fluid. 4. Indeterminate partially visualized RIGHT renal lesion not included on the prior studies and recom mend renal ultrasound 5. Tiny 3 mm nodule in the fissure is unchanged.
== END 2023-05-01 07:35 | disposition home or self-care (01) ==
PROVIDERS: PCP Family Medicine; Visit Provider Internal Medicine Pulmonary Disease
DX: R91.8 Other nonspecific abnormal finding of lung field (principal); J47.9 Bronchiectasis, uncomplicated
CPT/HCPCS: 71250

== ENCOUNTER → 2023-05-08 08:55 | Outpatient (BNVA) | payer MEDICARE, SELFPAY | PROVIDERS: PCP Family Medicine; Visit Provider Anesthesiology Pain Medicine | DX: M54.2 Cervicalgia (principal); M54.50 Low back pain, unspecified; M79.604 Pain in right leg; M79.605 Pain in left leg; M79.602 Pain in left arm; M79.601 Pain in right arm | CPT/HCPCS: 99214 ==

== ENCOUNTER 2023-05-09 11:22 | Day surgery (SDC) | payer MEDICARE, SELFPAY ==
[2023-05-05 10:38] VITALS: BMI 25.0
[2023-05-09] VITALS (8 sets, daily range): BP systolic 106–138; BP diastolic 74–91; PULSE 62–95; RESP 16–20; TEMP 36.2–36.6; O2SAT 95–99
[2023-05-09] MEDS: sodium chloride 0.9% 1,000 ML 30 ML IV (12:19)
--- NOTE | 2023-05-09 12:22 | P.ANESASSM_ITS ---
Pre-Anesthetic Assessment Height/Weight: Height 1.73 m Weight 74.843 kg Temp Pulse Resp BP Pulse Ox O2 Del Method 97.1 F L 62 16 121/80 98 Room Air 05/09/23 12:07 05/09/23 12:07 05/09/23 12:07 05/09/23 12:07 05/09/23 12:07 05/09/23 12:07 Operation Date: 05/09/23 12:40 Proposed Procedures p BRONCH, BAL, 10513, 71413, 15884, 89655,R91.8(Not Applicable) - Braxton Sorto DatarMD Familial anesthetic complications: None Was Beta Delmy taken within 24 hours: Yes Was Clonidine taken within 24 hours: N/A Last intake: Intake Last Liquid Date 05/08/23 Last Liquid Time 20:00 Last Solid Date 05/08/23 Last Solid Time 20:00 Social No alcohol and No tobacco Exam alert, oriented x 3, clear to auscultation bilaterally and regular rate & rhythm Airway Mallampati: Class II Dentition: other (missing) Pulmonary Asthma and Chronic Obstructive Pulmonary Disease CV/HEM Coronary Artery Disease (5 stents) GI Gastroesophageal Reflux Disease Metabolic Diabetes Mellitus Anesthetic Plan ASA status: 3 Anesthesia: General Risk of > 500 ml blood loss (7ml/kg in children): No Medications/Allergies Home Medications Medication Instructions Recorded Confirmed Last Taken Type aspirin 325 mg capsule 325 mg PO DAILY 07/11/22 05/08/23 05/02/23 History famotidine 20 mg tablet (Pepcid) 20 mg PO DAILY 07/11/22 05/08/23 05/05/23 History qjrbqbxadwia-vwx-egryo acid-vit 1 tab PO DAILY 07/11/22 05/08/23 05/05/23 History K-lycop 400 mcg-20 mcg-370 mcg tablet (Men's 50 Plus Multivitamin) atorvastatin 80 mg tablet 80 mg PO QPM #90 tabs 09/15/22 05/08/23 05/05/23 Rx nitroglycerin 0.4 mg sublingual 0.4 mg sublingual Q5M PRN Chest 09/15/22 05/08/23 Unknown Rx tablet (Nitrostat) Pain #25 tabs albuterol sulfate 90 mcg/actuation 2 puff inhalation Q6H PRN 10/13/22 05/08/23 05/05/23 History aerosol inhaler shortness of breath or wheezing montelukast 10 mg tablet 10 mg PO DAILY #30 tabs 12/15/22 05/08/23 05/05/23 Rx (Singulair) metformin 500 mg tablet,extended 500 mg PO BID #180 tabs 01/27/23 05/08/23 05/05/23 Rx release 24 hr prasugrel 10 mg tablet 10 mg PO DAILY 03/03/23 05/08/23 05/02/23 History budesonide-formoterol HFA 160 1 inh inhalation BID PRN Shortness 03/16/23 05/08/23 05/05/23 History mcg-4.5 mcg/actuation aerosol Of Breath inhaler (Symbicort) potassium gluconate 600 mg (99 mg) 600 mg PO DAILY 03/16/23 05/08/23 05/05/23 History tablet metoprolol succinate 25 mg 25 mg PO BEDTIME #90 tabs 04/11/23 05/08/23 05/05/23 Rx tablet,extended release 24 hr tizanidine 4 mg tablet 4 mg PO BID PRN muscle spasticity 04/24/23 05/08/23 05/05/23 Rx #60 tabs gabapentin 300 mg capsule 300 mg PO TID pain #90 caps 05/08/23 05/08/23 Unknown Rx Allergies Allergy/AdvReac Type Severity Reaction Status Date / Time gluten Allergy Unknown Verified 05/09/23 12:21 Sulfa (Sulfonamide Allergy ADR-Gastrointestinal Verified 05/09/23 12:21 Antibiotics) Upset Current Medications Generic Name Dose Route Start Last Admin Trade Name Freq PRN Reason Stop Dose Admin Sodium Chloride 1,000 mls @ 30 mls/hr 05/09/23 12:15 05/09/23 12:19 Sodium Chloride 0.9% IV 05/10/23 12:14 30 mls/hr .Q24H FIGUEROA Administration PFSH Anesthesia Medical History CAD (coronary artery disease) COPD (chronic obstructive pulmonary disease) Diabetes mellitus GERD (gastroesophageal reflux disease) History of ME (myocardial infarction) Hyperlipidemia Surgical History H/O thumb surgery History of back surgery S/P appendectomy S/P bariatric surgery S/P coronary angiogram S/P knee surgery S/P rotator cuff repair Family History Mother Hypertension Diabetes Brother Lung disease COPD-smoker Other Hyperlipidemia Denies family history of CAD (coronary artery disease) Clotting disorder Dementia Psychiatric illness Chronic kidney disease (CKD) Anesthesia complication Bleeding disorder Cancer Stroke Social History Smoking and tobacco status: former smoker Quit status (tobacco): has quit using tobacco Year quit tobacco: 2015 Former quit date comment: 2ppd x 45 year Hx Alcohol intake: current Alcohol intake frequency: holidays/special occasions only Substance/Drug Use: never Lives independently: Yes Marital status: Current occupational status: retired Mikala/Caodaism: [employer]ology Special mikala needs: No Agree to transfusion: Yes Data Anesthesia Cardiac Studies: Sestamibi Stress Test (Cardiology) 03/31
[2023-05-09 12:33] LABS: Glucose Point of Care 92 mg/dL (70-110)
--- NOTE | 2023-05-09 12:44 | P.HP_ITS ---
Providers/Chief Complaint Admitting Physician: Braxton Moreno MD, [facility] Primary Care Provider: Enrique Collisn MD Chief Complaint: Progressive infiltrates in left lower lobe History of Present Illness Mr. Haroon Brock is a 63-year-old male with past medical history of eosinophilic asthma, GERD, COPD, hyperlipidemia, diabetes, CAD s/p OK X5, s/p cardiac stents X5, initially referred by PCP Marcio Hill [employer] for chronic bronchitis seen in October 2022. He is a former cigarette smoker, quit 2016, 2ppd x 45 year Hx.? Denies hemoptysis since hospitalization. Reported having dyspnea on exertion and reports using albuterol at least 3 times a day.? Reported having childhood history of asthma and several allergies however he thinks he grew out of it. Since he moved to [place] he has increasing episodes of bronchitis.There is evidence of significant peripheral eosinophilia on labs.? His absolute eosinophil count was 600On 10/13/2022, IgE 342, allergy panel positive for mold, dust mites negative history of grass, orchard grass, perennial rye allergen, sweet vernal grass, ragweed Currently using Symbicort 160-4.5 mcg 2 puffs inhalation twice daily.? ? Still complains of some episodes of bronchitis and is to use albuterol sometimes. Patient has reported that he moved from [place] approx 8 months ago.? PMH OK x 5, cardiac stent x 5, last stent 5 years ago, following with Dr. Nabil sheldon.Most recent stress test 03/31/2023 is normal. Patient had [facility] ED 07/17/2022 visit for hemoptysis, CT chest showed posterior medial lower lobe moderate pneumonia with mucous plugging, bronchiectasis, consolidation with air bronchograms, patient was transferred to [facility] and was treated with multiple rounds of abx.? During that ED visit respiratory viral panel was positive for parainfluenza. Repeat CT chest 10/31/2022 showed previously described left lower lobe pneumonia essentially resolved with few residual mucous plugs.? There is bronchiectasis in left lower lobe.? There noncalcified nodules in left lower lobe measuring 7 to 8 mm appears stable. Recommended 6-month follow-up CT chest 6 month follow-up CT chest 05/01/2023 progressed infiltrates in the LEFT lower lobe today compared to 10/31/2022 with patchy coarse nodular infiltrates compatible with pneumonia.? Cystic bronchiectasis LEFT lower lobe.Previously mentioned nodules were not visualized due to new patchy coarse infiltrates Review of Systems General: Reports: 10 or more systems reviewed and unremarkable except in HPI and below Medications/Allergies Home Medications Medication Instructions Recorded Confirmed Last Taken Type aspirin 325 mg capsule 325 mg PO DAILY 07/11/22 05/09/23 05/02/23 History famotidine 20 mg tablet (Pepcid) 20 mg PO DAILY 07/11/22 05/09/23 05/08/23 History srplymulkmzi-nbq-qkvyk acid-vit 1 tab PO DAILY 07/11/22 05/09/23 05/08/23 History K-lycop 400 mcg-20 mcg-370 mcg tablet (Men's 50 Plus Multivitamin) atorvastatin 80 mg tablet 80 mg PO QPM #90 tabs 09/15/22 05/09/23 05/08/23 Rx nitroglycerin 0.4 mg sublingual 0.4 mg sublingual Q5M PRN Chest 09/15/22 05/09/23 Unknown Rx tablet (Nitrostat) Pain #25 tabs albuterol sulfate 90 mcg/actuation 2 puff inhalation Q6H PRN 10/13/22 05/09/23 05/08/23 History aerosol inhaler shortness of breath or wheezing montelukast 10 mg tablet 10 mg PO DAILY #30 tabs 12/15/22 05/09/23 05/08/23 Rx (Singulair) metformin 500 mg tablet,extended 500 mg PO BID #180 tabs 01/27/23 05/09/23 05/08/23 Rx release 24 hr prasugrel 10 mg tablet 10 mg PO DAILY 03/03/23 05/09/23 05/02/23 History budesonide-formoterol HFA 160 1 inh inhalation BID PRN Shortness 03/16/23 05/09/23 05/08/23 History mcg-4.5 mcg/actuation aerosol Of Breath inhaler (Symbicort) potassium gluconate 600 mg (99 mg) 600 mg PO DAILY 03/16/23 05/09/23 05/08/23 History tablet metoprolol succinate 25 mg 25 mg PO BEDTIME #90 tabs 04/11/23 05/09/23 05/08/23 Rx tablet,extended release 24 hr tizanidine 4 mg tablet 4 mg PO BID PRN muscle spasticity 04/24/23 05/09/23 05/08/23 Rx #60 tabs gabapentin 300 mg capsule 300 mg PO TID pain #90 caps 05/08/23 05/08/23 Unknown Rx Allergies Allergy/AdvReac Type Severity Reaction Status Date / Time gluten Allergy Unknown Verified 05/09/23 12:21 Sulfa (Sulfonamide Allergy ADR-Gastrointestinal Verified 05/09/23 12:21 Antibiotics) Upset PFSH PFSH: Medical History CAD (coronary artery disease) COPD (chronic obstructive pulmonary disease) Diabetes mellitus GERD (gastroesophageal reflux disease) History of OK (myocardial infarction) Hyperlipidemia Surgical History H/O thumb surgery History of back surgery S/P appendectomy S/P bariatric surgery S/P coronary angiogram S/P knee surgery S/P rotator cuff repair Family History Mother Hypertension Diabetes Brother Lung disease COPD-smoker Other Hyperlipidemia Denies family history of CAD (coronary artery disease) Clotting disorder Dementia Psychiatric illness Chronic kidney disease (CKD) Anesthesia complication Bleeding disorder Cancer Stroke Social History Smoking and tobacco status: former smoker Quit status (tobacco): has quit using tobacco Year quit tobacco: 2015 Former quit date comment: 2ppd x 45 year Hx Alcohol intake: current Alcohol intake frequency: holidays/special occasions only Substance/Drug Use: never Lives independently: Yes Marital status: Current occupational status: retired Mikala/Jew: Rastaf[employer] Special mikala needs: No Agree to transfusion: Yes Vital Signs Vitals Signs: Last Vital Signs Temp 97.1 F L 05/09/23 12:07 Pulse 62 05/09/23 12:07 Resp 16 05/09/23 12:07 BP 121/80 05/09/23 12:07 Pulse Ox 98 05/09/23 12:07 O2 Del Method Room Air 05/09/23 12:07 Physical Exam Narrative: EXAM NARRATIVE: General: alert, NAD HEENT: conj clear, EOMI, PERRL, mmm, Neck: supple, no meningismus Heme: no cervical LAP Respiratory: Inspection: No visible deformity of the chest wall Palpation: Trachea is mildly deviated to the right, bilateral symmetric expansion Percussion: Bilateral tympanic percussion note both anterior and posteriorly Auscultation: Bilateral clear to auscultation both anterior and posteriorly, no crackles wheezing or rhonchi Cardiovascular: rrr, nl s1s2, no mrg Abdomen: soft, nt, nd, no r/g, bs+ Extremities: pulses +, no edema, no c/c : no CVA tenderness Skin: intact, no rash MSK: no back or neck pain Neurologic: grossly intact A&P Assessment and plan (1) Lung infiltrate on CT: #CT chest showed progressive infiltrates in left lower lobe -Patient has cystic bronchiectasis -History of asthma it could very well be from asthma related to mucus production and impaction -Today we are doing bronchoscopic inspection and obtain BAL to rule out MAC and sent for cultures Nature of the procedure, indication, alternatives, risks and benefits-including complications like bleeding and pneumothorax were discussed with the patient and his very frankly. They verbalized understanding and agreed with the procedure Coding Level of Care Code Acute Code for Chg Fwd Diagnoses Lung infiltrate on CT R91.8 Time Spent (min) 23
[2023-05-09] MEDS: lidocaine 1% INJ 10 mL (per mL) XX (13:19)
--- NOTE | 2023-05-09 13:27 | P.OP_ITS ---
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 Haroon Brock is a 63-year-old male with past medical history of eosinophilic asthma, GERD, COPD, hyperlipidemia, diabetes, CAD s/p [place] X5, s/p cardiac stents X5, initially referred by PCP Marico Hill [employer] SPECIAL[employer] for chronic bronchitis seen in October 2022. Patient has significant smoking history [id number] quit in 2016 His work-up showed he has eosinophilic allergic asthma-currently using Symbicort 160-4.5 mcg 2 puffs inhalation twice daily.? ? Still complains of some episodes of bronchitis and is to use albuterol sometimes. Patient has reported that he moved from [place] approx 8 months ago.? PMH [place] x 5, cardiac stent x 5, last stent 5 years ago, following with Dr. Nabil sheldon.Most recent stress test 03/31/2023 is normal. Patient had [facility] ED 07/17/2022 visit for hemoptysis, CT chest showed posterior medial lower lobe moderate pneumonia with mucous plugging, bronchiectasis, consolidation with air bronchograms, patient was transferred to [facility] and was treated with multiple rounds of abx.? During that ED visit respiratory viral panel was positive for parainfluenza. Repeat CT chest 10/31/2022 showed previously described left lower lobe pneumonia essentially resolved with few residual mucous plugs.? There is bronchiectasis in left lower lobe.? There noncalcified nodules in left lower lobe measuring 7 to 8 mm appears stable.? Recommended 6-month follow-up CT chest 6 month follow-up CT chest? 05/01/2023 progressed infiltrates in the LEFT lower lobe today compared to 10/31/2022 with patchy coarse nodular infiltrates compatible with pneumonia.? Cystic bronchiectasis LEFT lower lobe.Previously mentioned nodules were not visualized due to new patchy coarse infiltrates Today scheduled for bronchoscopic evaluation of airways as well as to obtain bronchoalveolar lavage to rule out MAC as a cause of bronchiectasis Patient reports that he is tired and has fatigue and also has increased productive cough. Procedure: Procedure : 01253 Dx Bronchoscope w/Washings or airway inspection 16237 Dx Bronchoscope w/BAL 85790 Bronchoscopy w/ therapeutic aspiration of the tracheobronchial tree (clearance of airway secretions, removal of mucus plugs) Pre-Operative Diagnosis: Pneumonia Post-Operative Diagnosis: Same Indication: Recurrent as well as progressive infiltrates in left lower lung zone with cystic bronchiectasis Consent: Consents were obtained from patient and placed in the chart Pre-procedure Evaluation: Patient was evaluated clinically and ancillary testing reviewed. The risk of having active MTB infection is very low in my clinical judgement. ASA: 3 Time out: Performed by the procedure team and nursing staff. Vent support maintained on Fio2 100. Anesthesia: Managed as per anesthesia team; airway was secured with laryngeal mask airway (LMA) Local anesthesia: The martha in the right and left mainstem bronchi were anesthetized with 1% lidocaine, 4 mL. Summary of Significant Findings: -Bronchoscope passed through LMA used for initial inspection (78343) and airway clearance. LMA opening is opposed against glottic opening. Vocal cords are mobile. 1 mL of 1% lidocaine instilled on the vocal cords. The scope was advanced through the glottic opening. The trachea mucosa appeared normal, no endotracheal lesion was seen. The main martha is sharp. The martha, the right and left mainstem bronchi are anesthetized with 1% lidocaine. In a systematic manner bilateral bronchial tree was then examined. The bronchoscope was then introduced into the right mainstem bronchus. The right upper lobe, right middle lobe and right lower lobe bronchi were examined up to the third subsegmental level and no abnormalities were identified. The mucosa appeared normal with no endobronchial lesions, active bleeding. There were some secretions which were suctioned right away. The bronchoscope was advanced into the left mainstem bronchus. The mucosa appeared normal with no endobronchial lesions. The left upper lobe, lingula and left lower lobe bronchi were examined up to the third subsegmental level and no abnormalities were identified. Mucosa appeared normal with no endobronchial lesion, active bleeding or mucous plug. There were thick purulent mucus secretions in left lower lobe-which were suctioned right away. (99802). After suctioning-bronchoscope proceeded further into subsegments and there are no endobronchial lesions. Bronchoscope was wedged at the entrance of the posterior segment of left lower lobe, instilled 65 cc normal saline and aspirated 20 cc bronchoalveolar lavage (51005). Estimated Blood Loss: None Specimens: Bronchoalveolar lavage (55289) from left lower lobe sent for cultures, fluid analysis, Mycobacterium cultures Complications:None; patient tolerated the procedure well. Disposition: Patient extubated uneventfully and sent to postop recovery. He is hemodynamically stable and will be discharged home. Surgeon: Braxton Moreno MD, [facility] Pulmonary critical Care Medicine [facility] Related Problem List Diagnoses (1) Lung infiltrate on CT: (2) Bronchiectasis:
--- NOTE | 2023-05-09 13:40 | XR_ITS ---
WS: [id number] Exam: XR chest 1V portable [id number] Date/Time of Exam: 05/09/2023 1:40 PM Reason For Exam: post bronch Comparison 07/11/2022. The lungs are fully expanded and clear. Normal cardiomediastinal silhouette fo r technique. No pleural effusions. Bony structures are intact. IMPRESSION: 1. No acute cardiopulmonary finding. No change.
--- NOTE | 2023-05-09 14:01 | ANE.PACU2 ---
Inpatient post-anesthesia follow up: Airway intact: Yes Vital signs: Temperature 97.9 F Pulse Rate 62 Respiratory Rate 20 Blood Pressure 110/77 Pulse Oximetry 95 Oxygen Delivery Me thod Room Air Oxygen Flow Rate Fraction of Inspir ed Oxygen Hydration adequate: Yes Nausea and vomiting: No Pain level: 1 Mental status: Baseline
[2023-05-09 15:28] LABS: Apprearance, Bronch Wash Cloudy (CLEAR); Color, Bronc Wash White; PATH Referral Yes; Total Cells Counted Bronch 100; WBC Within 10% 10
[2023-05-09 15:30] LABS: Cyto Order Verification No Order
== END 2023-05-09 14:52 | disposition home or self-care (01) ==
PROVIDERS: PCP Family Medicine; Visit Provider Internal Medicine Pulmonary Disease
PROC: 0BJ08ZZ Inspection of Tracheobronchial Tree, Via Natural or Artificial Opening Endoscopic (ICD-10-PCS; CPT 31622; principal; 2023-05-09 12:30)
DX: J18.9 Pneumonia, unspecified organism (principal); E78.5 Hyperlipidemia, unspecified; I25.10 Atherosclerotic heart disease of native coronary artery without angina pectoris; Z95.5 Presence of coronary angioplasty implant and graft; I25.2 Old myocardial infarction; Z87.891 Personal history of nicotine dependence; J47.0 Bronchiectasis with acute lower respiratory infection; R91.8 Other nonspecific abnormal finding of lung field; E11.9 Type 2 diabetes mellitus without complications; Z79.84 Long term (current) use of oral hypoglycemic drugs; Z79.82 Long term (current) use of aspirin
CPT/HCPCS: 31624; 31645; 36416; 71045; 80503; 82962; 87015; 87070; 87116; 87205; 87206; 87801; 89050; J2704; J7030

== ENCOUNTER → 2023-06-16 16:47 | Outpatient (BNVA) | payer MEDICARE, SELFPAY | PROVIDERS: PCP Family Medicine; Visit Provider Family Medicine | DX: M19.071 Primary osteoarthritis, right ankle and foot (principal); J47.9 Bronchiectasis, uncomplicated; J44.9 Chronic obstructive pulmonary disease, unspecified; I25.10 Atherosclerotic heart disease of native coronary artery without angina pectoris; Z12.2 Encounter for screening for malignant neoplasm of respiratory organs; J82.83 Eosinophilic asthma; Z95.5 Presence of coronary angioplasty implant and graft; Z87.891 Personal history of nicotine dependence | CPT/HCPCS: 73630; 99214 ==

== ENCOUNTER → 2023-06-20 08:38 | Outpatient (BNVA) | payer MEDICARE, SELFPAY | PROVIDERS: PCP Family Medicine; Visit Provider Anesthesiology Pain Medicine | DX: M54.50 Low back pain, unspecified (principal); M54.2 Cervicalgia; M18.11 Unilateral primary osteoarthritis of first carpometacarpal joint, right hand; M19.031 Primary osteoarthritis, right wrist; J47.9 Bronchiectasis, uncomplicated | CPT/HCPCS: 87015; 87070; 87116; 87205; 87206; 87801; 99214 ==

== ENCOUNTER → 2023-07-10 07:34 | Outpatient (BNVA) | payer MEDICARE, SELFPAY | PROVIDERS: PCP Family Medicine; Visit Provider Podiatrist Foot & Ankle Surgery | DX: M21.621 Bunionette of right foot (principal); M20.41 Other hammer toe(s) (acquired), right foot; M20.42 Other hammer toe(s) (acquired), left foot; E11.42 Type 2 diabetes mellitus with diabetic polyneuropathy; Z79.84 Long term (current) use of oral hypoglycemic drugs | CPT/HCPCS: 99203 ==

== ENCOUNTER 2023-07-19 07:43 | Day surgery (SDC) | payer MEDICARE, SELFPAY ==
[2023-07-19] VITALS (18 sets, daily range): BP systolic 102–126; BP diastolic 65–88; PULSE 64–80; RESP 10–22; TEMP 36.6–36.8; O2SAT 93–97; BMI 25.8
--- NOTE | 2023-07-19 | XR_ITS ---
WS: [id number] Exam: XR finger RT min 2V [id number] Date/Time of Exam: 07/19/2023 12:00 AM Reason For Exam: REINA PICS C-arm images of the RIGHT hand obtained for intraoperative purposes.
[2023-07-19] MEDS: ketorolac 30 mg/mL INJ IVP (08:18)
[2023-07-19] MEDS: sodium chloride 0.9% 1,000 ML 30 ML IV (08:18)
[2023-07-19] MEDS: acetaminophen 1,000 MG/100 ML PIGGYBACK 400 MG IV (08:23)
[2023-07-19 08:25] LABS: Glucose Point of Care 119 mg/dL (70-110)
[2023-07-19] MEDS: scopolamine 1.5 Patch 1 PATCH TRANSDERMA (08:32)
--- NOTE | 2023-07-19 08:59 | ANES.PREANE2 ---
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 Operation Date: 07/19/23 09:25 Proposed Procedures p Right Thumb Basal Joint Arthroplasty(Right) - Saman Blackburn DO s Right Resection STT Resection(Right) - Saman Blackburn DO Familial anesthetic complications: none Was Beta Delmy taken within 24 hours: Yes Was Clonidine taken within 24 hours: N/A Last intake: Intake Last Liquid Date 07/18/23 Last Liquid Time 20:00 Last Solid Date 07/18/23 Last Solid Time 20:00 Social Tobacco and No alcohol Exam alert, oriented x 3 and regular rate & rhythm Airway Submandibular: within normal limits Cervical ROM: within normal limits Mallampati: Class II Dentition: chipped Pulmonary Asthma and Chronic Obstructive Pulmonary Disease CV/HEM Coronary Artery Disease and Myocardial Infarction Metabolic Diabetes Mellitus and Hyperlipidemia Anesthetic Plan ASA status: 3 Anesthesia: General Medications/Allergies Home Medications Medication Instructions Recorded Confirmed Last Taken Type aspirin 325 mg capsule 325 mg PO DAILY 07/11/22 07/18/23 07/05/23 History famotidine 20 mg tablet (Pepcid) 20 mg PO DAILY 07/11/22 07/18/23 07/18/23 History eifivxojlkhz-kct-ddgil acid-vit 1 tab PO DAILY 07/11/22 07/18/23 07/18/23 History K-lycop 400 mcg-20 mcg-370 mcg tablet (Men's 50 Plus Multivitamin) nitroglycerin 0.4 mg sublingual 0.4 mg sublingual Q5M PRN Chest 09/15/22 07/18/23 Unknown Rx tablet (Nitrostat) Pain #25 tabs albuterol sulfate 90 mcg/actuation 2 puff inhalation Q6H PRN 10/13/22 07/19/23 07/17/23 History aerosol inhaler shortness of breath or wheezing potassium gluconate 600 mg (99 mg) 600 mg PO DAILY 03/16/23 07/18/23 07/18/23 History tablet metoprolol succinate 25 mg 25 mg PO BEDTIME #90 tabs 04/11/23 07/18/23 07/19/23 05:00 Rx tablet,extended release 24 hr fluticasone fur. 100 mcg-umeclid 1 inh inhalation DAILY #60 ea 05/10/23 07/19/23 07/19/23 05:00 Rx 62.5 mcg-vilant 25 mcg inhalat.powder (Trelegy Ellipta) levofloxacin 500 mg tablet 500 mg PO DAILY #7 tabs 05/10/23 07/10/23 07/18/23 Rx metformin 500 mg tablet,extended 500 mg PO BID #180 tabs 05/12/23 07/18/23 07/18/23 Rx release 24 hr prasugrel 10 mg tablet 10 mg PO DAILY #90 tabs 05/23/23 07/18/23 07/05/23 Rx Acapella #1 ea 06/16/23 07/10/23 Unknown Rx diazepam 10 mg tablet 10 mg PO ONCE PRN anxiety #2 tabs 06/20/23 07/10/23 Unknown Rx montelukast 10 mg tablet 10 mg PO DAILY #30 tabs 06/30/23 07/18/23 07/18/23 05:00 Rx (Singulair) gabapentin 300 mg capsule 300 mg PO TID pain #90 caps 07/03/23 07/18/23 07/19/23 05:00 Rx atorvastatin 80 mg tablet 80 mg PO QPM #90 tabs 07/04/23 07/18/23 07/18/23 Rx Diabetic Shoes with 3 sets of #1 ea 07/10/23 07/10/23 Unknown Rx insoles diclofenac sodium 1 % topical gel 4 g topical QID 30 days #100 grams 07/10/23 07/18/23 Unknown Rx (Voltaren Arthritis Pain) Allergies Allergy/AdvReac Type Severity Reaction Status Date / Time gluten Allergy Unknown Verified 07/18/23 10:55 Sulfa (Sulfonamide Allergy ADR-Gastrointestinal Verified 07/18/23 10:55 Antibiotics) Upset Current Medications Generic Name Dose Route Start Last Admin Trade Name Freq PRN Reason Stop Dose Admin Sodium Chloride 1,000 mls @ 30 mls/hr 07/19/23 08:00 07/19/23 08:18 Sodium Chloride 0.9% IV 07/20/23 07:59 30 mls/hr .Q24H FIGUEROA Administration Scopolamine 1 patch 07/19/23 07:48 07/19/23 08:32 Scopolamine 1.5 Patch TRANSDERMA 1 patch ONCE PRN Administration anesthetic related nausea PFSH Anesthesia Medical History CAD (coronary artery disease) COPD (chronic obstructive pulmonary disease) Diabetes mellitus GERD (gastroesophageal reflux disease) History of CT (myocardial infarction) Hyperlipidemia Surgical History H/O thumb surgery History of back surgery S/P appendectomy S/P bariatric surgery S/P coronary angiogram S/P knee surgery S/P rotator cuff repair Family History Mother Hypertension Diabetes Brother Lung disease COPD-smoker Other Hyperlipidemia Denies family history of CAD (coronary artery disease) Clotting disorder Dementia Psychiatric illness Chronic kidney disease (CKD) Anesthesia complication Bleeding disorder Cancer Stroke Social History Smoking and tobacco/nicotine status: former use of tobacco/nicotine Quit status (tobacco/nicotine): has quit using Year quit tobacco: 2016 Former quit date comment: 2ppd x 45 year Hx Alcohol intake: current Alcohol intake frequency: holidays/special occasions only Substance/Drug Use: never Lives independently: Yes Marital status: Current occupational status: retired [employer]ala/[employer]: Jewish Special mikala needs: No Agree to transfusion: Yes Data Anesthesia Cardiac Studies: Sestamibi Stress Test (Cardiology) 03/31/23
--- NOTE | 2023-07-19 09:41 | W.PM.OPSUD ---
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
[2023-07-19] MEDS: ceFAZolin 2,000 MG in sodium chloride 0.9% (plus) 50 ML 100 MG IV (09:55)
[2023-07-19] MEDS: ROPivacaine 0.5% SDV 30 mL 150 MG INJECTION (10:29)
[2023-07-19] MEDS: lidocaine 2% INJ 20 mL INJECTION (10:29)
--- NOTE | 2023-07-19 11:13 | W.PM.BPON ---
Date of Procedure: [July 19, 2023] Surgeon: [Dr. 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
--- NOTE | 2023-07-19 11:21 | PM.PACU ---
PACU note Narrative: Patient is a 63-year-old male just underwent a right thumb basal joint arthroplasty. Patient transferred to PACU in stable condition. Patient still somnolent and under effect of the anesthesia. Dressing on hand is dry and in place. Patient's fingers are warm and well-perfused. normal cap refill under 2 seconds. Limited exam due to patient still under the effect of anesthesia. Exam: unarousable Disposition: discharged
--- NOTE | 2023-07-19 11:24 | P.OP_ITS ---
Operative Report Date of procedure: July 19, 2023 Surgeon: Saman Blackburn DO Procedure: Surgeon: Saman Blackburn DO Boat Canvas Maker And Installer: Paulo Blackburn PA-C: PA was necessary for assistance in this case with assistance in thumb positioning while execution of procedure as well as to assist with instrumentation and retraction and protection of neurovascular structures as well as assist in wound closure. 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 Findings consistent with a right thumb?basal?joint severe arthritis and STT joint arthritis. This is failed conservative treatment she is underwent injections as well as bracing at this point last injection only provided minimal relief and at this point time only other treatment option surgical intervention of the right thumb?basal?joint.? Patient does understand with the?right thumb basal?joint arthroplasty and partial trapezoidectomy potential loss of range of motion as well as strength but ultimately this would provide patient with significant pain relief.? Through shared decision making patient elects proceed with surgical intervention of right thumb?basal?joint arthroplasty and partial trapezoidectomy.? Once again patient understands risk benefits complication alternatives to each treatment option understanding risk elects to proceed with surgery. Procedure: Patient seen evaluated in the preoperative holding area.? Consent was signed and reviewed with patient.? Correct extremity marked.? Once cleared by anesthesia patient was taken back to the operative suite.? Underwent anesthesia per the anesthesia department.? Patient was placed in supine position all bony prominences well-padded patient was properly secured to the bed.? Underwent ane sthesia for the anesthesia department.? A armboard was placed to the right upper extremity a nonsterile tourniquet applied to the right upper arm.? Once appropriately anesthetized right upper extremity was then prepped and draped in standard orthopedic fashion.? Final timeout performed.? Patient received appropriate preoperative antibiotics. Esmarch was used exsanguinate the right upper extremity and tourniquet was insufflated to 250 mmHg. I then utilized a 15 blade in standard longitudinal fashion directly over the right thumb?basal?joint .? Sharp scalpel incision was made through skin only.? I then switched to Littler dissection scissors and dissected out the dorsal cutaneous branches which were protected throughout this case.? I then identified the APL and EPL tendons.? I then performed a first dorsal compartment release under direct visualization with loupe magnification.? At this point time I then mobilized the tendons with a blunt wheatie self retractor and went through this interval.? Next I was directly onto the CMC joint dorsal capsule.? I then subsequently utilized my dissection scissors to dissect out the radial artery which was then identified and protected by my assisted living assistant throughout this case with a Kasdan retractor.? Once I identified the radial artery and dorsal branch I then subsequently performed my capsulotomy of the first CMC joint with Calumet blade.? I then introduced a Mauldin into the arthritic space at the first CMC joint.? This was confirmed with mini C arm to be the appropriate bone prior to performing my trapeziectomy.? The trapezium was then shelled out and its entirety with a McClamary elevator with care to protect and not injure any of my remaining carpal bone articular cartilage as well as not to damage the/injure the radial artery as it was protected throughout the case.? This was then removed and identified the FCR within the floor of my incision.? Trapeziectomy was complete and confirmed on mini C arm. At this point time I thoroughly irrigated and removed of all residual bony debris.? A Mauldin was placed into the STT joint and joint was inspected and this was found to have complete [id number] articulation and loss of cartilage significant with STT joint arthritis. At this point in time then subsequently under fluoroscopic imaging and a small osteotome excised 2 mm wafer of bone to excise and perform a partial trapezoid excision (partial trapezoid ectomy) to eliminate [id number] articulation and treat patient's STT joint arthritis. Bone was excised and now 2 mm of free space is noted. Irrigated the wound bed and verified all loose bony fragments were all excised and removed. ?I then subsequently plan to proceed with utilizing Arthrex fiber lock suspensioplasty kit which was then opened and then subsequently drilled into the second metacarpal base.? Once I confirm my appropriate placement with mini C arm all suture anchor.? Once this was confirmed appropriate placement I then drilled the impacted and deployed the bicortical suture anchor.? This had excellent tension and could lift the arm off of the table with its fixation.? I then subsequently identified the radial aspect of the first metacarpal and at its mid substance on the radial aspect I subsequently drilled tapped and holding the thumb in appropriate adduction with not over distraction keeping it in line with the base of the second and subsequently loaded suturetape under appropriate tension and thumb positioning keeping the thumb in adduction and appropriate length impacted this suture anchor which had excellent fixation and the excess suture was then removed.? This was then confirmed to have excellent axial stability and an appropriate suspensioplasty.? In order to help add with fixation& interposition within the voided space from the trapeziectomy I then identified a slip of the APL which was then harvested proximally and then weaved this through the FCR tendon twice and then tied this onto the APL tendon itself which created a soft tissue interposition as well as added appropriate abduction to the thumb with appropriate thumb position.? This was then secured with 2 horizontal mattress stitches with 4-0 FiberWire.? I then took the excess of the APL tendon and then placed this within the voided space as a interposition.? I then subsequently had the tourniquet deflated.? Hemostasis was satisfactory.? I then took some Gelfoam to add for soft tissue and interposition within the voided space and hemostasis.?Wound bed was once again thoroughly irrigated.? I then closed the incision with deep 3-0 Vicryl and nylon sutures for skin.? Final x-rays with mini C arm were then taken showing stable trapeziectomy with soft tissue and suture anchor interposition.? Thumb had excellent axial stability as well as appropriate positioning.? Patient was then dressed with 4 x 4's ABD Curlex and a thumb spica splint.? With an Ramone wrap.? Patient was awakened from anesthesia and taken to PACU in stable condition. Disposition: Patient taken to PACU in stable condition recovering well.? Patient will receive appropriate discharge instructions as well as pain medication postoperatively.? Maintain splint until follow-up.? patient will follow therapy protocol with OT hand therapy for?basal?joint arthroplasty.? Patient understands agrees with current plan.? All questions answered.? We will see me in the office in 2 weeks.
--- NOTE | 2023-07-19 11:40 | PC.NURSE ---
1140 - LMA out per pt awakening
[2023-07-19] MEDS: fentaNYL 50 mcg/mL INJ 2mL IVP ×2 (11:44→12:00)
[2023-07-19] MEDS: HYDROmorphone 1 mg/mL INJ 1 mL 0.5 MG IVP (12:30)
[2023-07-19] MEDS: ondansetron 2 mg/ML SDV 2 mL 4 MG IVP (12:44)
[2023-07-19] MEDS: HYDROcodone-acetaminophen 5-325 mg Tablet 1 TAB PO (13:45)
--- NOTE | 2023-07-19 17:38 | ANE.PACU2 ---
Inpatient post-anesthesia follow up: Airway intact: Yes Vital signs: Temperature 97.9 F Pulse Rate 64 Respiratory Rate 16 Blood Pressure 114/77 Pulse Oximetry 96 Oxygen Delivery Me thod Room Air Oxygen Flow Rate 6 Fraction of Inspir ed Oxygen Hydration adequate: Yes Nausea and vomiting: No Pain level: 4 Mental status: Baseline
== END 2023-07-19 14:00 | disposition home or self-care (01) ==
PROVIDERS: PCP Family Medicine; Visit Provider Student in an Organized Health Care Education/Training Program
PROC: (CPT 26535; principal; 2023-07-19 09:15)
PROC: (CPT 25447; 2023-07-19 09:15)
DX: M19.041 Primary osteoarthritis, right hand (principal); J44.9 Chronic obstructive pulmonary disease, unspecified; I25.10 Atherosclerotic heart disease of native coronary artery without angina pectoris; I25.2 Old myocardial infarction; E11.9 Type 2 diabetes mellitus without complications; E78.5 Hyperlipidemia, unspecified; Z79.82 Long term (current) use of aspirin; Z79.84 Long term (current) use of oral hypoglycemic drugs; Z87.891 Personal history of nicotine dependence
CPT/HCPCS: 25447; 26480; 36416; 73140; 76000; 82962; C1713; J0131; J0690; J1170; J1885; J2405; J2704; J2795; J3010; J7030

== ENCOUNTER 2023-08-08 06:00 | Outpatient (CLI) | payer MEDICARE, SELFPAY | END 2023-08-08 06:01 | LOC: SOT 08-10 11:09 | PROVIDERS: Visit Provider Student in an Organized Health Care Education/Training Program | DX: Z47.89 Encounter for other orthopedic aftercare (principal) | CPT/HCPCS: 97760; 99213; L3807 ==

== ENCOUNTER → 2023-08-08 13:53 | Outpatient (BNVA) | payer MEDICARE, SELFPAY | PROVIDERS: PCP Family Medicine; Visit Provider Student in an Organized Health Care Education/Training Program | DX: M79.644 Pain in right finger(s) (principal); Z96.691 Finger-joint replacement of right hand; Z46.89 Encounter for fitting and adjustment of other specified devices; Z47.89 Encounter for other orthopedic aftercare | CPT/HCPCS: 73130; 97760; 99213; L3807 ==

== ENCOUNTER 2023-08-15 07:42 | Outpatient (RCR) | payer MEDICARE, SELFPAY | END 2023-09-10 23:59 | disposition home or self-care (01) | LOC: SOT 07:42 | PROVIDERS: Visit Provider Student in an Organized Health Care Education/Training Program | DX: Z47.1 Aftercare following joint replacement surgery (principal) | CPT/HCPCS: 97022; 97110; 97140; 97166; 97530; G0283 ==

== ENCOUNTER 2023-09-11 06:00 | Outpatient (RCR) | payer MEDICARE, SELFPAY | END 2023-10-11 23:59 | disposition home or self-care (01) | LOC: SOT 06:00 | PROVIDERS: Visit Provider Student in an Organized Health Care Education/Training Program | DX: Z47.1 Aftercare following joint replacement surgery (principal) | CPT/HCPCS: 97022; 97110; 97140 ==

== ENCOUNTER → 2023-09-19 11:49 | Outpatient (BNVA) | payer MEDICARE, SELFPAY | PROVIDERS: Visit Provider Student in an Organized Health Care Education/Training Program | DX: Z96.691 Finger-joint replacement of right hand (principal) | CPT/HCPCS: 99213 ==

== ENCOUNTER → 2023-09-29 09:02 | Outpatient (BNVA) | payer MEDICARE, SELFPAY | PROVIDERS: Visit Provider Internal Medicine Cardiovascular Disease | DX: E78.5 Hyperlipidemia, unspecified (principal); I25.10 Atherosclerotic heart disease of native coronary artery without angina pectoris; E11.9 Type 2 diabetes mellitus without complications; I25.2 Old myocardial infarction; Z87.891 Personal history of nicotine dependence | CPT/HCPCS: 99214 ==

== ENCOUNTER → 2023-10-10 06:57 | Outpatient (BNVA) | payer MEDICARE, SELFPAY | PROVIDERS: PCP Family Medicine; Visit Provider Podiatrist Foot & Ankle Surgery | DX: M21.621 Bunionette of right foot (principal); M20.41 Other hammer toe(s) (acquired), right foot; M20.42 Other hammer toe(s) (acquired), left foot; E11.42 Type 2 diabetes mellitus with diabetic polyneuropathy; Z79.84 Long term (current) use of oral hypoglycemic drugs | CPT/HCPCS: 99213 ==

== ENCOUNTER 2023-10-12 06:00 | Outpatient (RCR) | payer MEDICARE, SELFPAY | END 2023-11-09 23:59 | disposition home or self-care (01) | LOC: SOT 06:00 | PROVIDERS: PCP Family Medicine; Visit Provider Student in an Organized Health Care Education/Training Program | DX: Z47.1 Aftercare following joint replacement surgery (principal) | CPT/HCPCS: 97022; 97110 ==

== ENCOUNTER → 2023-10-23 09:07 | Outpatient (BNVA) | payer MEDICARE, SELFPAY | PROVIDERS: PCP Family Medicine; Visit Provider Internal Medicine Pulmonary Disease | DX: J44.89 Other specified chronic obstructive pulmonary disease (principal); I25.10 Atherosclerotic heart disease of native coronary artery without angina pectoris; J47.9 Bronchiectasis, uncomplicated; Z12.2 Encounter for screening for malignant neoplasm of respiratory organs | CPT/HCPCS: 99214 ==

== ENCOUNTER → 2023-10-27 09:01 | Outpatient (BNVA) | payer MEDICARE, SELFPAY | PROVIDERS: PCP Family Medicine; Referring Provider Family Medicine; Visit Provider Orthopaedic Surgery | DX: M54.2 Cervicalgia (principal) | CPT/HCPCS: 72050; 99204 ==

== ENCOUNTER 2023-12-04 08:52 | Outpatient (CLI) | payer MEDICARE, SELFPAY ==
--- NOTE | 2023-12-04 11:00 | MR_ITS ---
WS: [id number] MRI CERVICAL SPINE NONCONTRAST TECHNIQUE: Sagittal T1, T2 and STIR imaging. Axial T2, gradient, and fiesta imaging. CLINICAL INFORMATION: neck pain COMPARISON: None. FINDINGS: Mild spondylitic changes. Straightening of the normal cervical lordosis. Slight anterolisthesis C3 on C4, C4 on C5 ,C5 on C6, and C6 on C7. Slight anterolisthesis C7 on T1 and T1 on T2. C2-C3: Mild facet arthropathy. Spinal canal and foramen are patent. C3-C4: Moderate LEFT facet arthropathy. Mild LEFT and no significant RIGHT foraminal narrowing. Spina l canal is patent. C4-C5: Disc osteophytic ridging. Moderate facet arthropathy. Mild LEFT greater than RIGHT bony forami nal narrowing. C5-C6: Disc osteophyte complex with endplate ridging. Moderate facet arthropathy. Mild LEFT and no si gnificant RIGHT foraminal narrowing. C6-C7: Slight anterolisthesis. Mild LEFT and no significant RIGHT foraminal narrowing. Spinal canal i s patent. C7-T1: Spinal canal and foramina are patent. Visualized brain stem structures: Normal. Prevertebral soft tissues: Normal. IMPRESSION: 1. Straightening of the normal cervical lordosis with mild spondylitic changes. 2. Mild bony foraminal narrowing LEFT C3-4, LEFT C4-5, LEFT C5-C6 and LEFT C6-C7. 3. Moderate facet arthropathy worse at LEFT C3-C4, C4-C5, and C5-C6. 4. No high-grade central canal stenosis. Cord signal is normal.
== END 2023-12-04 08:53 | disposition home or self-care (01) ==
LOC: RAD 08:53
PROVIDERS: PCP Family Medicine; Visit Provider Orthopaedic Surgery
DX: M54.2 Cervicalgia (principal); E11.42 Type 2 diabetes mellitus with diabetic polyneuropathy; M21.621 Bunionette of right foot; M20.41 Other hammer toe(s) (acquired), right foot; M20.42 Other hammer toe(s) (acquired), left foot; Z79.84 Long term (current) use of oral hypoglycemic drugs
CPT/HCPCS: 72141; 99213

== ENCOUNTER → 2023-12-19 13:06 | Outpatient (BNVA) | payer MEDICARE, SELFPAY | PROVIDERS: PCP Family Medicine; Visit Provider Student in an Organized Health Care Education/Training Program | DX: Z96.691 Finger-joint replacement of right hand (principal) | CPT/HCPCS: 73130; 99213 ==

== ENCOUNTER → 2024-01-02 14:48 | Outpatient (BNVA) | payer MEDICARE, SELFPAY | PROVIDERS: PCP Family Medicine; Visit Provider Orthopaedic Surgery | DX: M54.2 Cervicalgia (principal) | CPT/HCPCS: 99213 ==

== ENCOUNTER → 2024-01-30 08:32 | Outpatient (BNVA) | payer MEDICARE, SELFPAY | PROVIDERS: PCP Family Medicine; Visit Provider Family Medicine | DX: E11.9 Type 2 diabetes mellitus without complications (principal); J44.1 Chronic obstructive pulmonary disease with (acute) exacerbation; J44.9 Chronic obstructive pulmonary disease, unspecified; J45.909 Unspecified asthma, uncomplicated; I25.10 Atherosclerotic heart disease of native coronary artery without angina pectoris; M54.2 Cervicalgia; J30.2 Other seasonal allergic rhinitis | CPT/HCPCS: 80053; 80061; 83036; 85025 ==

== ENCOUNTER → 2024-02-07 08:14 | Outpatient (BNVA) | payer MEDICARE, SELFPAY | PROVIDERS: PCP Family Medicine; Visit Provider Podiatrist Foot & Ankle Surgery | DX: M21.621 Bunionette of right foot; M20.41 Other hammer toe(s) (acquired), right foot; M20.42 Other hammer toe(s) (acquired), left foot; E11.42 Type 2 diabetes mellitus with diabetic polyneuropathy; Z79.84 Long term (current) use of oral hypoglycemic drugs | CPT/HCPCS: 73630; 99213 ==

== ENCOUNTER → 2024-03-05 07:31 | Outpatient (BNVA) | payer MEDICARE, SELFPAY | PROVIDERS: PCP Family Medicine; Visit Provider Podiatrist Foot & Ankle Surgery | DX: M21.621 Bunionette of right foot (principal); M20.41 Other hammer toe(s) (acquired), right foot; M20.42 Other hammer toe(s) (acquired), left foot; E11.42 Type 2 diabetes mellitus with diabetic polyneuropathy; Z79.84 Long term (current) use of oral hypoglycemic drugs | CPT/HCPCS: 99213 ==

== ENCOUNTER 2024-03-10 13:17 | Emergency (ER) | payer MEDICARE, SELFPAY ==
[2024-03-10 13:29] VITALS: BP 111/82; PULSE 87; RESP 16; TEMP 36.6; O2SAT 95
[2024-03-10 15:19] VITALS: BP 118/91; PULSE 74; RESP 18; O2SAT 95
--- NOTE | 2024-03-10 15:25 | ED_ITS ---
HPI - Back Pain/Injury 2 General: Chief Complaint: Back Pain/Injury Stated Complaint: Back pain--he does have shingles Time Seen by Provider: 03/10/24 15:00 Source: patient Mode of arrival: ambulatory History of Present Illness: 63-year-old male presents emergency room complaining low back pain. He said chronic back pain problems in the past most of this week he spent in bed because of shingles now when he gets up and moves he has severe back pain he has no saddle paresthesias no urinary retention or fecal incontinence. MD elicited complaint: back pain Associated symptoms: Deny abdominal pain, chills, dysuria, fever(s) or urinary urgency Review of Systems 2 Const: Denies: fever(s) or chills Card: Denies: chest pain Resp: Denies: dyspnea GI: Denies: abdominal pain : Denies: dysuria, urinary frequency or urinary urgency Musc: Denies: neck pain or back pain Skin/Breast: Denies: rash PFSH ED 2 PFSH: Medical History History of DC (myocardial infarction) CAD (coronary artery disease) COPD (chronic obstructive pulmonary disease) Diabetes mellitus Hyperlipidemia GERD (gastroesophageal reflux disease) Surgical History S/P coronary angiogram History of back surgery S/P bariatric surgery S/P knee surgery S/P appendectomy S/P rotator cuff repair H/O thumb surgery Family History Mother Hypertension Diabetes Brother Lung disease COPD-smoker Other Hyperlipidemia Denies family history of CAD (coronary artery disease) Clotting disorder Dementia Psychiatric illness Chronic kidney disease (CKD) Anesthesia complication Bleeding disorder Cancer Stroke Social History Smoking and tobacco/nicotine status: unknown if used tobacco/nicotine Quit status (tobacco/nicotine): has quit using Year quit tobacco: 2015 Former quit date comment: 2ppd x 45 year Hx Alcohol intake: current Alcohol intake frequency: holidays/special occasions only Substance/Drug Use: never Lives independently: Yes Marital status: Current occupational status: retired [employer]: [employer] Special mikala needs: No Agree to transfusion: Yes Physical Exam 2 Const: GENERAL APPEARANCE: cooperative and comfortable O RIENTATION/CONSCIOUSNESS: Yes awake, Yes oriented to person, Yes oriented to place and Yes oriented to time HENMT: COMMON NORMALS: normocephalic, atraumatic and hearing grossly normal bilaterally HEAD & SCALP: normocephalic and atraumatic Resp: COMMON NORMALS: normal respiratory effort, No retractions, No use of accessory muscles and clear to auscultation bilaterally AUSCULTATION: clear to auscultation bilaterally Cardio: COMMON NORMALS: regular rate, regular rhythm and No murmurs present (Cardio) RATE: regular rate RHYTHM: regular rhythm GI: COMMON NORMALS: Soft to palpation and No hepatosplenomegaly present A USCULTATION: Yes normoactive bowel sounds PALPATION: Yes Soft to palpation, No Tenderness to palpation present (GI), No Guarding due to palpation present (GI) and Yes No hepatosplenomegaly present Extremity: COMMON NORMALS: normal to inspection, capillary refill normal, no clubbing, cyanosis or edema, no calf tenderness and no pedal edema Neuro: SENSORIUM/ORIENTATION: Yes oriented to person, Yes oriented to place and Yes oriented to time Skin: OTHER: T7-8 level shingles on the right. Vesicles are deroofed with mucousy base eschar Course 2 Vital Signs: Vital signs: Vital Signs Temperature 97.9 F 03/10/24 13:29 Pulse Rate 66 03/10/24 17:07 Respiratory Rate 18 03/10/24 17:07 Blood Pressure 120/78 03/10/24 17:07 Pulse Oximetry 92 03/10/24 17:07 Oxygen Delivery Me thod Room Air 03/10/24 17:07 MDM - Back Pain/Injury Medical Decision Making Labs unremarkable reviewed in the chart. Pain improved with medications given will discharge home with steroid taper diclofenac tizanidine and hydrocodone as needed. Follow-up with primary care if not improving. Labs 03/10/24 15:36 03/10/24 15:36 Laboratory Results WBC 9.43 10^3/uL (3.29-11.43) 03/10/24 15:36 RBC 5.15 10^6/uL (3.85-5.65) 03/10/24 15:36 Hgb 15.40 g/dL (11.27-16.99) 03/10/24 15:36 Hct 47.4 % (37-53) 03/10/24 15:36 MCV 92.0 fl (82-101) 03/10/24 15:36 MCH 29.9 pg (27-33) 03/10/24 15:36 MCHC 32.5 g/dL (30-55) 03/10/24 15:36 RDW 14.2 % (12.1-15.1) 03/10/24 15:36 Plt Count 194 10^3/cmm (157-399) 03/10/24 15:36 MPV 10.2 fL (7.4-10.4) 03/10/24 15:36 Neut % (Auto) 71.5 % 03/10/24 15:36 Lymph % (Auto) 17.3 % 03/10/24 15:36 Wallace % (Auto) 7.6 % 03/10/24 15:36 Eos % (Auto) 2.5 % 03/10/24 15:36 Baso % (Auto) 0.8 % 03/10/24 15:36 Neut # (Auto) 6.73 10^3/uL (1.8-7.7) 03/10/24 15:36 Lymph # (Auto) 1.6 10^3/uL (0.8-4.8) 03/10/24 15:36 Wallace # (Auto) 0.7 10^3/uL (0.2-0.9) 03/10/24 15:36 Eos # (Auto) 0.2 10^3/uL (0.0-0.8) 03/10/24 15:36 Baso # (Auto) 0.1 10^3/uL (0.0-0.1) 03/10/24 15:36 Nucleated RBC % (auto) 0 % 03/10/24 15:36 Nucleated RBCs # 0.0 /100WBC 03/10/24 15:36 Sodium 135 mmol/L (136-145) L 03/10/24 15:36 Potassium 4.4 mmol/L (3.5-5.1) 03/10/24 15:36 Chloride 100 mmol/L (98-107) 03/10/24 15:36 Carbon Dioxide 27 mmol/L (22-29) 03/10/24 15:36 Anion Gap 12.4 (5-19) 03/10/24 15:36 BUN 16 mg/dL (8-23) 03/10/24 15:36 Creatinine 0.9 mg/dL (0.7-1.2) 03/10/24 15:36 GFR Calculation 85.2 mL/min (90-130) L 03/10/24 15:36 Glucose 106 mg/dL (65-115) 03/10/24 15:36 Calculated Osmolality 282 mOsm/kg (285-295) L 03/10/24 15:36 Calcium 9.6 mg/dL (8.5-10.5) 03/10/24 15:36 Total Bilirubin 0.4 mg/dL (0.15-1.2) 03/10/24 15:36 AST 27 U/L (0-40) 03/10/24 15:36 ALT 22 U/L (0-41) 03/10/24 15:36 Alkaline Phosphatase 132 U/L (40-130) H 03/10/24 15:36 Total Protein 8.0 g/dL (6.6-8.7) 03/10/24 15:36 Albumin 4.3 g/dL (3.5-5.2) 03/10/24 15:36 Globulin 3.7 g/dL (1.3-4.6) 03/10/24 15:36 No radiology studies performed this visit Discharge Plan Discharge Patient Disposition: Home Clinical Impression: Lumbar radiculopathy Condition: Stable Prescriptions: New tizanidine 4 mg tablet 4 mg PO Q6H PRN (Reason: muscle spasticity) Qty: 20 0RF Rx Instructions: do not exceed 3 doses per 24 hrs hydrocodone-acetaminophen 5-325 mg tablet 1 tab PO Q6H PRN (Reason: pain) Qty: 15 0RF prednisone 20 mg tablet 20 mg PO TID Qty: 15 0RF Rx Instructions: 1 p.o. 3 times daily x3 days, 1 p.o. twice daily x2 days, 1 p.o. daily x2 days diclofenac sodium 75 mg tablet,delayed release (DR/EC) 75 mg PO Q12H PRN (Reason: pain) Qty: 20 0RF No Action nitroglycerin [Nitrostat] 0.4 mg tablet, sublingual 0.4 mg SUBLINGUAL Q5M PRN (Reason: Chest Pain) Qty: 25 3RF Rx Instructions: do not exceed 3 doses per episode (DME) Diabetic Shoes with 3 sets of insoles See Rx Instructions .Route .MEDSUPPLY Qty: 1 0RF Rx Instructions: As directed by [facility] gabapentin 300 mg capsule 300 mg PO TID Qty: 270 1RF valacyclovir [Valtrex] 1 gram tablet 1,000 mg PO TID 7 Days Qty: 21 0RF potassium gluconate 600 mg (99 mg) tablet 600 mg PO DAILY (DME) Acapella See Rx Instructions .Route .MEDSUPPLY Qty: 1 0RF Rx Instructions: As directed (DME) Custom Thumb Spika Splint See Rx Instructions .Route .MEDSUPPLY Qty: 1 0RF Rx Instructions: As directed cetirizine [Zyrtec] 10 mg tablet 10 mg PO DAILY PRN (Reason: allergy symptoms) Qty: 30 0RF atorvastatin 80 mg tablet 80 mg PO QPM Qty: 90 3RF prasugrel 10 mg tablet 10 mg PO DAILY Qty: 90 3RF montelukast [Singulair] 10 mg tablet 10 mg PO DAILY Qty: 30 6RF Trelegy Ellipta 100-62.5-25 mcg blister with device 1 inh inhalation DAILY Qty: 60 6RF metoprolol succinate 25 mg tablet extended release 24 hr 25 mg PO BEDTIME Qty: 90 3RF albuterol sulfate 90 mcg/actuation HFA aerosol inhaler 2 puff inhalation Q6H PRN (Reason: shortness of breath or wheezing) Qty: 6.7 0RF metformin 500 mg tablet extended release 24 hr 500 mg PO BID Qty: 180 1RF famotidine [Pepcid] 20 mg Tablet 20 mg PO DAILY aspirin 325 mg Capsule 325 mg PO DAILY Men's 50 Plus Multivitamin 400-20-370 mcg Tablet 1 tab PO DAILY Discharge Orders: Discharge ED (Routine); Ordered 03/10/24 Ordered By: Clifford Sam Referrals: Enrique Collins MD [Primary Care Provider] - Discharge Diet: Usual diet Discharge Activity: Limit activity as instructed Patient Instructions: Acute Low Back Pain (ED), Opioid Safety, Pain Management Activity Restrictions/Additional Instructions: Thank you for choosing [facility] for your healthcare needs today. It is very important that you follow up as instructed or that you return to the Emergency Department should you have concerns or if your condition changes or worsens in any way. You are seen today for low back pain. Recommend the steroid taper to begin tomorrow. You can use the diclofenac hydrocodone tizanidine as needed. If not improving follow-up with your primary care doctor for reevaluation. Coding Level of Care Code ED Office Clerk Routine for [facility]
[2024-03-10 15:43] LABS: Basophils # 0.1 10^3/uL (0.0-0.1); Basophils % 0.8 %; Eosinophils # 0.2 10^3/uL (0.0-0.8); Eosinophils % 2.5 %; Hematocrit 47.4 % (37-53); Lymphocytes # 1.6 10^3/uL (0.8-4.8); Lymphocytes % 17.3 %; Mean Corpuscular HGB Conc 32.5 g/dL (30-55); Mean Corpuscular Hemoglobin 29.9 pg (27-33); Mean Platelet Volume 10.2 fL (7.4-10.4); Monocytes # 0.7 10^3/uL (0.2-0.9); Monocytes % 7.6 %; Neutrophils # 6.73 10^3/uL (1.8-7.7); Neutrophils % 71.5 %; Nucleated Red Blood Cells % 0 %; Platelet Count 194 10^3/cmm (157-399); Red Blood Count 5.15 10^6/uL (3.85-5.65); Red Cell Distribution Width 14.2 % (12.1-15.1); White Blood Count 9.43 10^3/uL (3.29-11.43)
[2024-03-10] MEDS: orphenadrine 30 mg/mL Inj 2 mL 60 MG IM (15:52)
[2024-03-10] MEDS: morphine 4 mg/mL SDV 1 mL IVP (15:52)
[2024-03-10] MEDS: ketorolac 30 mg/mL INJ IVP (15:52)
[2024-03-10] MEDS: dexamethasone 10 mg/mL INJ IM (15:52)
[2024-03-10 16:05] LABS: Alanine Aminotransferase 22 U/L (0-41); Albumin Level 4.3 g/dL (3.5-5.2); Alkaline Phosphatase 132 U/L (40-130); Anion Gap 12.4 (5-19); Aspartate Amino Transferase 27 U/L (0-40); Blood Urea Nitrogen 16 mg/dL (8-23); Calcium 9.6 mg/dL (8.5-10.5); Carbon Dioxide 27 mmol/L (22-29); Chloride 100 mmol/L (98-107); Creatinine Clr Calc Pharmacy 83.2622; Globulin 3.7 g/dL (1.3-4.6); Glomerular Filtration Rate 85.2 mL/min (90-130); Glucose 106 mg/dL (65-115); Osmolality Calculated 282 mOsm/kg (285-295); Potassium 4.4 mmol/L (3.5-5.1); Sodium 135 mmol/L (136-145); Total Bilirubin 0.4 mg/dL (0.15-1.2)
[2024-03-10 17:07] VITALS: BP 120/78; PULSE 66; RESP 18; O2SAT 92
[2024-03-10 17:20] VITALS: BP 120/78; PULSE 65; RESP 18; O2SAT 92
== END 2024-03-10 17:21 | disposition home or self-care (01) ==
PROVIDERS: Emergency Provider Family Medicine; PCP Family Medicine
DX: M54.16 Radiculopathy, lumbar region (principal); Z79.82 Long term (current) use of aspirin; Z87.891 Personal history of nicotine dependence; I25.2 Old myocardial infarction; I25.10 Atherosclerotic heart disease of native coronary artery without angina pectoris; J44.9 Chronic obstructive pulmonary disease, unspecified; E11.9 Type 2 diabetes mellitus without complications; E78.5 Hyperlipidemia, unspecified
CPT/HCPCS: 80053; 85025; 96372; 96374; 96375; 99284; J1100; J1885; J2270; J2360

== ENCOUNTER 2024-03-13 10:08 | Outpatient (CLI) | payer MEDICARE, SELFPAY ==
--- NOTE | 2024-03-13 10:45 | CT_ITS ---
WS: [id number] LDCT LUNG CANCER SCREENING TECHNIQUE: Noncontrast CT of the chest with coronal and sagittal reformatted images. CLINICAL INFORMATION: Cancer Screen COMPARISON: CT chest 05/01/2023 DLP: 62.30 mGy.cm DIvol: Mean CTDIvol: 1.10 (mGy) All CT scans at [facility] use at least one of these dose optimization techniques: automat ed exposure control; mA and/or kV adjustment per patient size (includes targeted exams where dose is matched to clinical indication); or iterative reconstruction. FINDINGS: Stable cystic bronchiectasis LEFT lower lobe with mucous plugging similar to previous. Slightly impro jessica patchy infiltrates in the LEFT lower lobe. Subsegmental atelectasis RIGHT lower lobe. Moderate ch ronic eczematous changes. A few tiny stable scattered micronodules. Normal caliber thoracic aorta. Aortic calcification. No mediastinal or hilar lymphadenopathy. Coronar y calcification. No axillary lymphadenopathy. Small esophageal hiatal hernia. Postoperative changes i nvolving the stomach and GE junction. Mild thoracic curve. Mild thoracic kyphosis. Stable cortical RIGHT renal lesion measuring 1.7 cm technically indeterminate. Recommend follow-up [facility] ultrasound. CT/CT lung screening [id number] IMPRESSION: Recommend RIGHT renal ultrasound for evaluation of the 1.7 cm corti ghazala lesion LUNG-RADS: 2S-Benign Appearance or Behavior with Significant Findings FOLLOW UP: 12 Month: Continue annual screening with LDCT
== END 2024-03-13 10:09 | disposition home or self-care (01) ==
LOC: RAD 10:08
PROVIDERS: PCP Family Medicine; Visit Provider Internal Medicine Pulmonary Disease
DX: Z12.2 Encounter for screening for malignant neoplasm of respiratory organs (principal); Z87.891 Personal history of nicotine dependence; J47.9 Bronchiectasis, uncomplicated; J98.11 Atelectasis; R91.8 Other nonspecific abnormal finding of lung field; K44.9 Diaphragmatic hernia without obstruction or gangrene; M40.204 Unspecified kyphosis, thoracic region; N28.89 Other specified disorders of kidney and ureter
CPT/HCPCS: 71271

== ENCOUNTER → 2024-03-29 09:32 | Outpatient (BNVA) | payer MEDICARE, SELFPAY | PROVIDERS: PCP Family Medicine; Visit Provider Internal Medicine Cardiovascular Disease | DX: I25.10 Atherosclerotic heart disease of native coronary artery without angina pectoris (principal); E78.5 Hyperlipidemia, unspecified; I25.2 Old myocardial infarction; E11.9 Type 2 diabetes mellitus without complications; J44.89 Other specified chronic obstructive pulmonary disease | CPT/HCPCS: 99213 ==

== ENCOUNTER 2024-04-17 17:29 | Emergency (ER) | payer MEDICARE, SELFPAY ==
[2024-04-17] VITALS (13 sets, daily range): BP systolic 94–138; BP diastolic 61–88; PULSE 58–90; RESP 14–20; TEMP 36.7; O2SAT 94–98
--- NOTE | 2024-04-17 17:33 | ECG_ITS ---
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 Measurements Intervals [place] Rate: 76 P: 71 NV: 200 QRS: -83 QRSD: 85 T: 29 QT: 366 QTc: 414 Interpretive Statements SINUS RHYTHM LOW QRS VOLTAGE IN PRECORDIAL LEADS [QRS DEFLECTION < 1.0 mV IN CHEST LEADS] POSSIBLE RIGHT VENTRICULAR CONDUCTION DELAY [RSR (QR) IN V1/V2] POSSIBLE ANTERIOR MYOCARDIAL INFARCTION , PROBABLY OLD [30 ms Q WAVE IN V3/V4, OR R < 0.2 mV IN V4] Compared to ECG 07/11/2022 12:47:06 Low QRS voltage now present Right bundle-branch block no longer present Left anterior fascicular block no longer present Myocardial infarct finding still present Electronically Signed On 04-17-2024 17:54:08 CDT by Kartik Santamaria M.D. [id number]
--- NOTE | 2024-04-17 18:04 | XRR_ITS ---
PROCEDURE INFORMATION: Exam: XR Chest Exam date and time: 04/17/2024 6:17 PM Age: 63 years old Clinical indication: Shortness of breath; Prior surgery; Surgery date: 6+ months; Surgery type: Stents x5; Additional info: Chest pain TECHNIQUE: Imaging protocol: Radiologic exam of the chest. Views: 1 view. COMPARISON: CT lung screening [id number] 03/13/2024 10:43 AM FINDINGS: Lungs: No consolidation. Pleural spaces: No pleural effusion or pneumothorax. Heart/Mediastinum: The cardiomediastinal silhouette is within normal limits. Bones/joints: No acute osseous abnormalities are seen. XR/XR chest 1V portable [id number] IMPRESSION: No acute cardiopulmonary disease.
[2024-04-17 18:26] LABS: Basophils # 0.1 10^3/uL (0.0-0.1); Basophils % 0.9 %; Eosinophils # 0.6 10^3/uL (0.0-0.8); Eosinophils % 4.8 %; Hematocrit 43.7 % (37-53); Lymphocytes # 1.6 10^3/uL (0.8-4.8); Lymphocytes % 13.4 %; Mean Corpuscular HGB Conc 32.5 g/dL (30-55); Mean Corpuscular Hemoglobin 29.6 pg (27-33); Mean Corpuscular Volume 91.2 fl (82-101); Monocytes % 8.6 %; Neutrophils # 8.58 10^3/uL (1.8-7.7); Nucleated Red Blood Cells % 0 %; Platelet Count 306 10^3/cmm (157-399); Red Blood Count 4.79 10^6/uL (3.85-5.65); White Blood Count 11.92 10^3/uL (3.29-11.43)
[2024-04-17 18:42] LABS: Troponin(5th) Baseline < 6 ng/L (0-15)
[2024-04-17 18:52] LABS: Alanine Aminotransferase 24 U/L (0-41); Albumin Level 4.2 g/dL (3.5-5.2); Alkaline Phosphatase 102 U/L (40-130); Anion Gap 17.1 (5-19); Aspartate Amino Transferase 27 U/L (0-40); Blood Urea Nitrogen 21 mg/dL (8-23); Calcium 9.4 mg/dL (8.5-10.5); Carbon Dioxide 24 mmol/L (22-29); Chloride 101 mmol/L (98-107); Globulin 2.8 g/dL (1.3-4.6); Glomerular Filtration Rate 97.6 mL/min (90-130); Glucose 117 mg/dL (65-115); Osmolality Calculated 290 mOsm/kg (285-295); Potassium 4.1 mmol/L (3.5-5.1); Sodium 138 mmol/L (136-145); Total Bilirubin 0.3 mg/dL (0.15-1.2)
--- NOTE | 2024-04-17 18:59 | ED_ITS ---
HPI - Chest Pain 2 General: Chief Complaint: Chest Pain Stated Complaint: CP Time Seen by Provider: 04/17/24 18:04 History of Present Illness: Patient presents to the ER with complaints of substernal chest pain that does not radiate it paroxysmal he goes between a 5 and a 10. Patient is found nothing I can make this better patient did take 1 nitro at home and it did help. Patient said this been going on for about the last week off and on but today at 5 PM at came on and stayed. Patient does have a cardiac history with approximately 5 stents about 10 years ago per patient. Patient is on aspirin, Effient. Patient sees Dr. Anderson and his last appointment was 03/29/2024. We have the records shows patient's last myocardial perfusion scan and sestamibi stress test was on 03/31/2023 which shows patient is negative at that time. Review of Systems 2 General: Reports: 10 or more systems reviewed and unremarkable except in HPI and below PFSH ED 2 PFSH: Medical History History of NM (myocardial infarction) CAD (coronary artery disease) COPD (chronic obstructive pulmonary disease) Diabetes mellitus Hyperlipidemia GERD (gastroesophageal reflux disease) Surgical History S/P coronary angiogram History of back surgery S/P bariatric surgery S/P knee surgery S/P appendectomy S/P rotator cuff repair H/O thumb surgery Family History Mother Hypertension Diabetes Brother Lung disease COPD-smoker Other Hyperlipidemia Denies family history of CAD (coronary artery disease) Clotting disorder Dementia Psychiatric illness Chronic kidney disease (CKD) Anesthesia complication Bleeding disorder Cancer Stroke Social History Smoking and tobacco/nicotine status: unknown if used tobacco/nicotine Quit status (tobacco/nicotine): has quit using Year quit tobacco: 2015 Former quit date comment: 2ppd x 45 year Hx Alcohol intake: current Alcohol intake frequency: holidays/special occasions only Substance/Drug Use: never Lives independently: Yes Marital status: Current occupational status: retired Mikala/Mosque: Restorationism Special mikala needs: No Agree to transfusion: Yes Physical Exam 2 Const: COMMON NORMALS: no acute distress, average body habitus, patient oriented x3, no limitations, healthy appearing, alert and well nourished HENMT: COMMON NORMALS: normocephalic, atraumatic, hearing grossly normal bilaterally, external ears normal, Normal external nose present and moist oral mucous membranes HEAD & SCALP: normocephalic and atraumatic NOSE: Normal external nose present EXTERNAL EAR: Yes external ears normal Neck/C-Spine: COMMON NORMALS: no JVD Chest: COMMONS NORMALS: normal inspection of the chest and normal palpation of entire chest wall Resp: COMMON NORMALS: normal respiratory effort, No retractions, No use of accessory muscles and clear to auscultation bilaterally AUSCULTATION: clear to auscultation bilaterally Cardio: COMMON NORMALS: no JVD, regular rate, regular rhythm, S1 normal heart sound present, S2 normal heart sound present, No gallops present (Cardio), No clicks present (Cardio), No murmurs present (Cardio) and No rub (Cardio) R ATE: regular rate RHYTHM: regular rhythm HEART SOUNDS: S1 normal heart sound present and S2 normal heart sound present GI: COMMON NORMALS: Normal to inspection, nondistended, normoactive bowel sounds present, Soft to palpation, non-tender, No hepatosplenomegaly present and no masses PALPATION: Yes Soft to palpation and Yes No hepatosplenomegaly present Neuro: COMMON NORMALS: patient oriented x3 SENSORIUM/ORIENTATION: Yes alert Course 2 Vital Signs: Vital signs: Vital Signs Temperature 98.0 F 04/17/24 17:35 Pulse Rate 69 04/17/24 23:30 Respiratory Rate 18 04/17/24 23:30 Blood Pressure 106/70 04/17/24 23:30 Pulse Oximetry 96 04/17/24 23:30 Oxygen Delivery Me thod Nasal Cannula 04/17/24 23:30 Oxygen Flow Rate 2 04/17/24 23:30 MDM - Chest Pain Medical Decision Making Patient had lab work included CBC CMP lipase cardiac enzymes chest x-ray D-dimer CTA of the chest with contrast of the abdomen pelvis all of which was essentially negative for acute changes. Patient did end up having a 2 cm mass on his right anterior kidney that needs followed up. These results was discussed with the patient patient be discharged home to follow back up with Dr. Perry at the previously scheduled appointment on [place]. Differential Diagnosis Unlikely acute massive pulmonary embolism, acute respiratory failure, acute myocardial infarction, cardiac arrest or sudden cardiac Medical Records I reviewed the patient's medical records. Lab Data I reviewed the patient's lab results. 04/17/24 18:16 04/17/24 18:16 Radiology Impressions Chest X-Ray 04/17/24 18:04 IMPRESSION: No acute cardiopulmonary disease. Chest/Abdomen/Pelvis CT 04/17/24 22:30 IMPRESSION: 1. No evidence of acute arterial pathology in the chest, abdomen, or pelvis. 2. Debris-filled left lower lobe bronchi likely mucous plugging with associated volume loss and atelectasis. 3. Clustered tree-in-bud opacities in the right upper lobe likely infectious/inflammatory. Recommend three-month follow-up CT chest. 4. Indeterminate 2.0 cm right anterior upper pole renal mass. Recommend initial evaluation with ultrasound. Multiphase CT or MR should be obtained if lesion remains indeterminate. 5. Other nonemergent findings above. COMMENTS: The presence of pulmonary emphysema on CT is an independent risk factor for lung cancer. In the absence of a history or active diagnosis of lung cancer, it is recommended that this patient with emphysema be evaluated for enrollment in a low dose CT lung cancer screening program. Laboratory Results WBC 11.92 10^3/uL (3.29-11.43) H 04/17/24 18:16 RBC 4.79 10^6/uL (3.85-5.65) 04/17/24 18:16 Hgb 14.20 g/dL (11.27-16.99) 04/17/24 18:16 Hct 43.7 % (37-53) 04/17/24 18:16 MCV 91.2 fl (82-101) 04/17/24 18:16 MCH 29.6 pg (27-33) 04/17/24 18:16 MCHC 32.5 g/dL (30-55) 04/17/24 18:16 RDW 15.0 % (12.1-15.1) 04/17/24 18:16 Plt Count 306 10^3/cmm (157-399) 04/17/24 18:16 MPV 10.0 fL (7.4-10.4) 04/17/24 18:16 Neut % (Auto) 72.0 % 04/17/24 18:16 Lymph % (Auto) 13.4 % 04/17/24 18:16 Steele % (Auto) 8.6 % 04/17/24 18:16 Eos % (Auto) 4.8 % 04/17/24 18:16 Baso % (Auto) 0.9 % 04/17/24 18:16 Neut # (Auto) 8.58 10^3/uL (1.8-7.7) H 04/17/24 18:16 Lymph # (Auto) 1.6 10^3/uL (0.8-4.8) 04/17/24 18:16 Steele # (Auto) 1.0 10^3/uL (0.2-0.9) H 04/17/24 18:16 Eos # (Auto) 0.6 10^3/uL (0.0-0.8) 04/17/24 18:16 Baso # (Auto) 0.1 10^3/uL (0.0-0.1) 04/17/24 18:16 Nucleated RBC % (auto) 0 % 04/17/24 18:16 Nucleated RBCs # 0.0 /100WBC 04/17/24 18:16 D-Dimer 0.75 ug/mLFEU (0-0.59) H 04/17/24 18:16 Sodium 138 mmol/L (136-145) 04/17/24 18:16 Potassium 4.1 mmol/L (3.5-5.1) 04/17/24 18:16 Chloride 101 mmol/L (98-107) 04/17/24 18:16 Carbon Dioxide 24 mmol/L (22-29) 04/17/24 18:16 Anion Gap 17.1 (5-19) 04/17/24 18:16 BUN 21 mg/dL (8-23) 04/17/24 18:16 Creatinine 0.8 mg/dL (0.7-1.2) 04/17/24 18:16 GFR Calculation 97.6 mL/min (90-130) 04/17/24 18:16 Glucose 117 mg/dL (65-115) H 04/17/24 18:16 Calculated Osmolality 290 mOsm/kg (285-295) 04/17/24 18:16 Calcium 9.4 mg/dL (8.5-10.5) 04/17/24 18:16 Total Bilirubin 0.3 mg/dL (0.15-1.2) 04/17/24 18:16 AST 27 U/L (0-40) 04/17/24 18:16 ALT 24 U/L (0-41) 04/17/24 18:16 Alkaline Phosphatase 102 U/L (40-130) 04/17/24 18:16 Troponin T Baseline < 6 ng/L (0-15) 04/17/24 18:16 Troponin T 120 Minute 6.00 ng/L (0-15) 04/17/24 20:33 Delta Troponin T 0.32350 ABS# (0-10) 04/17/24 20:33 Troponin T Hi Sens 6Hr 7.58 ng/L (0-15) 04/18/24 00:10 Troponin T Hi Sens 6Hr Delta 1.32014 ng/L (0-12) 04/18/24 00:10 Total Protein 7.0 g/dL (6.6-8.7) 04/17/24 18:16 Albumin 4.2 g/dL (3.5-5.2) 04/17/24 18:16 Globulin 2.8 g/dL (1.3-4.6) 04/17/24 18:16 Lipase 23 U/L (13-60) 04/17/24 20:33 All radiology interpretation(s) finalized by discharge Discharge Plan Discharge Patient Disposition: Home Clinical Impression: Atypical chest pain, Mass of right kidney Condition: Stable Prescriptions: No Action nitroglycerin [Nitrostat] 0.4 mg tablet, sublingual 0.4 mg SUBLINGUAL Q5M PRN (Reason: Chest Pain) Qty: 25 3RF Rx Instructions: do not exceed 3 doses per episode (DME) Diabetic Shoes with 3 sets of insoles See Rx Instructions .Route .MEDSUPPLY Qty: 1 0RF Rx Instructions: As directed by [facility] valacyclovir [Valtrex] 1 gram tablet 1,000 mg PO TID 7 Days Qty: 21 0RF potassium gluconate 600 mg (99 mg) tablet 600 mg PO DAILY (DME) Acapella See Rx Instructions .Route .MEDSUPPLY Qty: 1 0RF Rx Instructions: As directed (DME) Custom Thumb Spika Splint See Rx Instructions .Route .MEDSUPPLY Qty: 1 0RF Rx Instructions: As directed cetirizine [Zyrtec] 10 mg tablet 10 mg PO DAILY PRN (Reason: allergy symptoms) Qty: 30 0RF atorvastatin 80 mg tablet 80 mg PO QPM Qty: 90 3RF prasugrel 10 mg tablet 10 mg PO DAILY Qty: 90 3RF montelukast [Singulair] 10 mg tablet 10 mg PO DAILY Qty: 30 6RF Trelegy Ellipta 100-62.5-25 mcg blister with device 1 inh inhalation DAILY Qty: 60 6RF metoprolol succinate 25 mg tablet extended release 24 hr 25 mg PO BEDTIME Qty: 90 3RF albuterol sulfate 90 mcg/actuation HFA aerosol inhaler 2 puff inhalation Q6H PRN (Reason: shortness of breath or wheezing) Qty: 6.7 0RF metformin 500 mg tablet extended release 24 hr 500 mg PO BID Qty: 180 1RF gabapentin 300 mg capsule 300 mg PO TID Qty: 270 1RF tizanidine 4 mg tablet 4 mg PO TID PRN (Reason: muscle spasticity) Qty: 30 0RF Rx Instructions: do not exceed 3 doses per 24 hrs diclofenac sodium 75 mg tablet,delayed release (DR/EC) 75 mg PO Q12H PRN (Reason: pain) Qty: 20 0RF hydrocodone-acetaminophen 5-325 mg tablet 1 tab PO BID PRN (Reason: pain) 5 Days Qty: 10 0RF famotidine [Pepcid] 20 mg Tablet 20 mg PO DAILY aspirin 325 mg Capsule 325 mg PO DAILY Men's 50 Plus Multivitamin 400-20-370 mcg Tablet 1 tab PO DAILY Discharge Orders: Discharge ED (Routine); Ordered 04/18/24 Ordered By: Valentin Baird Referrals: Enrique Collins MD [Primary Care Provider] - 1 week Patient Instructions: Chest Pain - Noncardiac Activity Restrictions/Additional Instructions: Your evaluation in the ER that included EKGs, blood work, chest x-ray, CT scan of the chest abdomen pelvis did not show any acute cause of your pain. It did show you have a 2 cm right kidney mass that needs further locally evaluated. Please keep your appointment with Dr. Collins as previously scheduled on Monday. 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
[2024-04-17] MEDS: morphine 4 mg/mL SDV 1 mL IVP (19:12)
[2024-04-17] MEDS: nitroglycerin 0.4 mg sublingual Tablet SUBLINGUAL (19:31)
[2024-04-17] MEDS: ketorolac 30 mg/mL INJ IVP (19:31)
--- NOTE | 2024-04-17 19:33 | ECG_ITS ---
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 Measurements Intervals [place] Rate: 63 P: 57 WV: 185 QRS: -56 QRSD: 111 T: 51 QT: 414 QTc: 424 Interpretive Statements SINUS RHYTHM LOW QRS VOLTAGE IN PRECORDIAL LEADS [QRS DEFLECTION < 1.0 mV IN CHEST LEADS] LEFT ANTERIOR FASCICULAR BLOCK [QRS AXIS <= -45, QR IN I, RS IN II] POSSIBLE ANTERIOR MYOCARDIAL INFARCTION , PROBABLY OLD [30 ms Q WAVE IN V3/V4, OR R < 0.2 mV IN V4] Compared to ECG 04/17/2024 17:28:09 Left anterior fascicular block now present Myocardial infarct finding still present Electronically Signed On 04-18-2024 10:00:25 CDT by Kartik Santamaria M.D. [id number]
[2024-04-17 20:59] LABS: Troponin 5 2HR Delta 0.00001 ABS# (0-10)
[2024-04-17] MEDS: lidocaine 2% viscous 15 ML, aluminum-mag hydrox-simethicon 30 ML, sucralfate oral liq 1 GM PO (22:24)
[2024-04-17] MEDS: HYDROmorphone 1 mg/mL INJ 1 mL IVP (22:26)
[2024-04-17 22:29] LABS: D Dimer 0.75 ug/mLFEU (0-0.59)
--- NOTE | 2024-04-17 22:30 | CTR_ITS ---
PROCEDURE INFORMATION: Exam: CTA Chest With Contrast CTA Abdomen and Pelvis With Contrast Exam date and time: 04/17/2024 10:43 PM Age: 63 years old Clinical indication: Other: Chest and right arm pain, abd pain; Abdominal pain; Epigastric; Angina; Chest pressure; Prior surgery; Surgery date: 6+ months; Surgery type: Stents; Additional info: Chest/epigastric pain, elevated d dimer TECHNIQUE: Imaging protocol: Computed tomographic angiography of the chest with contrast. Exam focused on the arteries. Computed tomographic angiography of the abdomen and pelvis with contrast. Exam focused on the arteries. 3D rendering (Not supervised by radiologist): MIP and/or 3D reconstructed images were created by the technologist. Radiation optimization: All CT scans at this facility use at least one of these dose optimization techniques: automated exposure control; mA and/or kV adjustment per patient size (includes targeted exams where dose is matched to clinical indication); or iterative reconstruction. Contrast material: OMNI 350; Contrast volume: 100 ml; Contrast route: INTRAVENOUS (IV); COMPARISON: CT angio chest PE protcl [id number] 07/17/2022 2:42 PM RADIATION DOSE METRICS: Total DLP (mGy-cm): 1607.55 FINDINGS: VASCULATURE: Pulmonary arteries: No pulmonary emboli are identified. Aorta: Mild calcifications of the thoracic aorta. No evidence of aneurysm, dissection, or significant luminal narrowing. The great vessels appear patent. Descending thoracic aorta demonstrates mild calcifications without acute pathology. Moderate calcifications of the abdominal aorta. 2.8 cm focal ectasia of the infrarenal abdominal aorta without asia aneurysm Celiac trunk and mesenteric arteries: Mild stenosis of the origin of the celiac artery. The superior mesenteric artery is patent. The inferior mesenteric artery is patent. Renal arteries: Bilateral renal arteries are patent. 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 The right external iliac and internal iliac arteries are moderately calcified though patent. Left iliac arteries: Mildly calcified left common iliac artery. [id number] calcified left external and internal iliac arteries which are patent. CHEST: Lungs: Moderate paraseptal emphysema in the apices and subpleural fibrotic changes in the posterior lower lobes possibly related to recurrent aspiration. Clustered tree-in-bud opacities in the posterior right upper lobe. Opacification of the left posterior lower lobe bronchi likely related to mucous plugging. There is associated volume loss. Pleural spaces: No pleural effusion or pneumothorax. Heart: Heart size is within normal limits. There is no pericardial effusion or pericardial thickening. Coronary arteries: Coronary artery stents in the LAD. Diaphragm: Moderate hiatal hernia. ABDOMEN AND PELVIS: Liver: The liver is normal. No hepatic masses are identified. Gallbladder and biliary ducts: The gallbladder is normal. There is no ductal dilatation. Pancreas: The pancreas is normal. There are few pancreatic calcifications suggesting chronic pancreatitis. The pancreas is otherwise normal. Spleen: The spleen is normal. Adrenal glands: The adrenal glands are normal. Kidneys and ureters: There is normal enhancement of the kidneys. No renal calcifications are identified. There is no hydronephrosis. Indeterminate 2.0 cm right anterior upper pole renal mass with Hounsfield units of approximately 26 inconsistent with a simple cyst. Stomach and bowel: Status post partial gastrectomy or sleeve gastrectomy. There is no large or small bowel obstruction. There is no evidence of bowel wall thickening. BladderMild colonic diverticulosis without diverticulitis. Appendix: A normal appendix is not identified. There is no secondary evidence of acute appendicitis. Intraperitoneal space: No inflammatory changes are identified. There is no free fluid or fluid collection seen. There is no pneumoperitoneum. Urinary bladder: The bladder is unremarkable. Reproductive: There is mild prostatomegaly. Lymph nodes: No enlarged lymph nodes are identified. Bones/joints: No acute osseous abnormalities are seen. Postoperative changes of the lower lumbar spine. Soft tissues: Tiny periumbilical hernia containing only fat. The soft tissues are otherwise within normal limits. CT/CT angio chest w abd pel w con IMPRESSION: 1. No evidence of acute arterial pathology in the chest, abdomen, or pelvis. 2. Debris-filled left lower lobe bronchi likely mucous plugging with associated volume loss and atelectasis. 3. Clustered tree-in-bud opacities in the right upper lobe likely infectious/inflammatory. Recommend three-month follow-up CT chest. 4. Indeterminate 2.0 cm right anterior upper pole renal mass. Recommend initial evaluation with ultrasound. Multiphase CT or MR should be obtained if lesion remains indeterminate. 5. Other nonemergent findings above. COMMENTS: The presence of pulmonary emphysema on CT is an independent risk factor for lung cancer. In the absence of a history or active diagnosis of lung cancer, it is recommended that this patient with emphysema be evaluated for enrollment in a low dose CT lung cancer screening program.
[2024-04-17 22:34] LABS: Lipase 23 U/L (13-60)
[2024-04-17] MEDS: iohexol 350 mg/mL 500 mL Btl (per mL) IV (23:06)
--- NOTE | 2024-04-17 23:52 | ECG_ITS ---
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 Measurements Intervals [place] Rate: 66 P: 66 MI: 198 QRS: -58 QRSD: 114 T: 53 QT: 410 QTc: 430 Interpretive Statements SINUS RHYTHM LOW QRS VOLTAGE IN PRECORDIAL LEADS [QRS DEFLECTION < 1.0 mV IN CHEST LEADS] RIGHT BUNDLE BRANCH BLOCK [120+ ms QRS DURATION, UPRIGHT V1, 40+ ms S IN I/aVL/V4/V5/V6] LEFT ANTERIOR FASCICULAR BLOCK [QRS AXIS <= -45, QR IN I, RS IN II] POSSIBLE ANTERIOR MYOCARDIAL INFARCTION , PROBABLY OLD [30 ms Q WAVE IN V3/V4, OR R < 0.2 mV IN V4] Compared to ECG 04/17/2024 19:30:59 Right bundle-branch block now present Myocardial infarct finding still present Electronically Signed On 04-18-2024 10:00:00 CDT by Kartik Santamaria M.D. [id number]
[2024-04-18] VITALS: BP 114/77; PULSE 66; RESP 18; O2SAT 96
[2024-04-18 00:30] VITALS: BP 102/69; PULSE 64; RESP 16; O2SAT 97
[2024-04-18 00:33] LABS: Troponin 5 6HR 7.58 ng/L (0-15); Troponin 5 6HR Delta 1.58001 ng/L (0-12)
[2024-04-18 00:53] VITALS: BP 118/71; PULSE 68; O2SAT 97
[2024-04-18 01:02] VITALS: BP 118/71; PULSE 68; RESP 16; TEMP 36.7; O2SAT 97
== END 2024-04-18 01:03 | disposition home or self-care (01) ==
PROVIDERS: Emergency Medicine; Emergency Provider Emergency Medicine; PCP Family Medicine
DX: R07.89 Other chest pain (principal); N28.89 Other specified disorders of kidney and ureter; Z79.82 Long term (current) use of aspirin; Z79.84 Long term (current) use of oral hypoglycemic drugs; Z87.891 Personal history of nicotine dependence; I25.2 Old myocardial infarction; I25.10 Atherosclerotic heart disease of native coronary artery without angina pectoris; J44.9 Chronic obstructive pulmonary disease, unspecified; E11.9 Type 2 diabetes mellitus without complications; E78.5 Hyperlipidemia, unspecified
CPT/HCPCS: 36415; 71045; 71275; 74177; 80053; 83690; 84484; 85025; 85378; 93005; 96374; 96375; 99285; J1170; J1885; J2270; Q9967

== ENCOUNTER → 2024-04-22 07:47 | Outpatient (BNVA) | payer MEDICARE, SELFPAY | PROVIDERS: PCP Family Medicine; Visit Provider Internal Medicine Critical Care Medicine | DX: J44.89 Other specified chronic obstructive pulmonary disease (principal); R06.09 Other forms of dyspnea; J43.2 Centrilobular emphysema; R93.89 Abnormal findings on diagnostic imaging of other specified body structures; K21.00 Gastro-esophageal reflux disease with esophagitis, without bleeding; K21.9 Gastro-esophageal reflux disease without esophagitis; K44.9 Diaphragmatic hernia without obstruction or gangrene; R07.89 Other chest pain; Z71.89 Other specified counseling | CPT/HCPCS: 99214 ==

== ENCOUNTER 2024-05-01 08:58 | Outpatient (CLI) | payer MEDICARE, SELFPAY ==
[2024-05-01 09:15] VITALS: PULSE 83; RESP 18; O2SAT 99
[2024-05-01] MEDS: albuterol 2.5 mg/3 mL Neb INHALATION (09:15)
[2024-05-01 09:19] VITALS: PULSE 85
== END 2024-05-01 08:59 | disposition home or self-care (01) ==
PROVIDERS: PCP Family Medicine; Visit Provider Internal Medicine Critical Care Medicine
DX: J44.89 Other specified chronic obstructive pulmonary disease (principal)
CPT/HCPCS: 94060; 94726; 94729; J7613

== ENCOUNTER 2024-06-06 14:08 | Outpatient (CLI) | payer MEDICARE, SELFPAY ==
--- NOTE | 2024-06-06 14:15 | US_ITS ---
WS: [id number] Bilateral renal ultrasound, 06/06/2024 Clinical Data: right renal mass Comparison: CT angio chest with abdomen pelvis, 04/17/2024, Findings: The right kidney measures 11.4 cm x 5.4 cm x 6.1 cm and the left kidney is 10.3 cm x 4.5 cm x 4.2 cm. There are no masses or hydronephrosis. Both kidneys appear to have simple cysts. The upper pole cyst of the right kidney measures 0.8 x 0.9 x 1.0 cm. There are other smaller cysts in the right kidney. One cyst in the left kidney measures 1.8 x 1.8 x 2.1 cm and another cyst measures 1.1 x 1.4 x 2.2 cm. The renal cortical margin is normal. No renal calculi are seen. The abdominal aorta and inferior vena cava show no vascular abnormalities. There is atherosclerotic c hange of the abdominal aorta. The bladder was scanned and was not remarkable. US/US renal BI* [id number] Impression: Small bilateral simple renal cysts.
== END 2024-06-06 14:09 | disposition home or self-care (01) ==
LOC: RAD 14:08
PROVIDERS: PCP Family Medicine; Visit Provider Family Medicine
DX: Q61.02 Congenital multiple renal cysts (principal)
CPT/HCPCS: 76770

== ENCOUNTER → 2024-06-13 09:27 | Outpatient (BNVA) | payer MEDICARE, SELFPAY | PROVIDERS: PCP Family Medicine; Visit Provider Family Medicine | DX: E11.9 Type 2 diabetes mellitus without complications (principal); N40.0 Benign prostatic hyperplasia without lower urinary tract symptoms | CPT/HCPCS: 80053; 83036; 84153 ==

== ENCOUNTER → 2024-06-17 12:14 | Outpatient (BNVA) | payer MEDICARE, SELFPAY | PROVIDERS: PCP Family Medicine; Visit Provider Psychiatry & Neurology Neurology | DX: B02.23 Postherpetic polyneuropathy (principal) | CPT/HCPCS: 99203; 99204 ==

== ENCOUNTER → 2024-07-22 12:00 | Outpatient (BNVA) | payer MEDICARE, SELFPAY | PROVIDERS: PCP Family Medicine; Visit Provider Psychiatry & Neurology Neurology | DX: M79.2 Neuralgia and neuritis, unspecified; E11.9 Type 2 diabetes mellitus without complications; R21 Rash and other nonspecific skin eruption; E78.5 Hyperlipidemia, unspecified; E55.9 Vitamin D deficiency, unspecified; R07.9 Chest pain, unspecified; B02.23 Postherpetic polyneuropathy; I25.10 Atherosclerotic heart disease of native coronary artery without angina pectoris; J44.9 Chronic obstructive pulmonary disease, unspecified | CPT/HCPCS: 82306; 82607; 82746; 83090; 83921; 84207; 84425; 84591; 99212; 99214 ==

== ENCOUNTER → 2024-10-02 09:24 | Outpatient (BNVA) | payer MEDICARE, SELFPAY | PROVIDERS: PCP Family Medicine; Visit Provider Nurse Practitioner Family | DX: E78.5 Hyperlipidemia, unspecified (principal); I25.10 Atherosclerotic heart disease of native coronary artery without angina pectoris; I25.2 Old myocardial infarction; E11.9 Type 2 diabetes mellitus without complications; J44.89 Other specified chronic obstructive pulmonary disease; Z87.891 Personal history of nicotine dependence; Z79.84 Long term (current) use of oral hypoglycemic drugs | CPT/HCPCS: 99213 ==

== ENCOUNTER 2025-02-26 16:31 | Emergency (ER) | payer MEDICARE, SELFPAY ==
--- NOTE | 2025-02-26 16:32 | XRR_ITS ---
PROCEDURE INFORMATION: Exam: XR Left Hand Exam date and time: 02/26/2025 5:51 PM Age: 64 years old Clinical indication: Injury or trauma; Other: Table saw injury; Laceration; Hand; Left TECHNIQUE: Imaging protocol: Radiologic exam of the left hand. Views: 3 or more views. COMPARISON: No relevant prior studies available. 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 Mildly displaced comminuted fracture in the volar tip of the 2nd distal phalanx. The other bones are intact. Soft tissues: Soft tissue amputation in the tip of the 4th finger. Soft tissue lacerations in the tips of the 2nd and 3rd fingers. No foreign body. XR/XR hand LT min 3V* [id number] IMPRESSION: Comminuted fracture in the volar tip of the 2nd distal phalanx.
[2025-02-26 16:44] VITALS: BP 123/86; PULSE 88; RESP 18; TEMP 36.8; O2SAT 96; BMI 28.1
--- NOTE | 2025-02-26 17:19 | ED_ITS ---
HPI - Wound/Laceration General: Chief Complaint: Wound/Laceration Stated Complaint: lac left hand with table saw Time Seen by Provider: 02/26/25 17:12 Source: patient Mode of arrival: ambulatory Limitations: no limitations History of Present Illness: 64yo male presents with family for evalu ation of left hand injury that occurred while he was using his table saw. Patient reports that the cell got away from him and he did cut the fingers of his left hand. States that he is on blood thinners. Reports he is right-hand dominant. Unsure when last tetanus, but knows it has been greater than 3 years. Patient denies any other injury or concern at this time. Associated symptoms: Denies chills or fever(s) Related Data Home Medications ?Medication ?Instructions ?Recorded ?Confirmed aspirin 325 mg capsule 325 mg PO DAILY 07/11/22 famotidine 20 mg tablet (Pepcid) 20 mg PO DAILY 10/02/24 aewybeumvwgy-agp-iqgft acid-vit 1 tab PO DAILY 2 10/02/24 K-lycop 400 mcg-20 mcg-370 mcg tablet (Men's 50 Plus Multivitamin) potassium gluconate 600 mg (99 mg) 600 mg PO DAILY 03/0310/02/24 tablet Previous Rx's ?Medication ?Instructions ?Recorded nitroglycerin 0.4 mg sublingual 0.4 mg sublingual Q5M PRN Chest 09/15/22 tablet (Nitrostat) Pain #25 tabs Acapella #1 ea 06/16/23 Diabetic Shoes with 3 sets of #1 ea 07/10/23 insoles Custom Thumb Spika Splint #1 ea 08/08/23 cetirizine 10 mg tablet (Zyrtec) 10 mg PO DAILY PRN al lergy 01/30/24 symptoms #30 tabs albuterol sulfate 90 mcg/actuation 2 puff inhalation Q 6H PRN 02/07/24 aerosol inhaler shortness of breath or wheez ing #6.7 grams metoprolol succinate 25 mg 25 mg PO BEDTIME #90 tabs 0 05/21/24 tablet,extended release 24 hr pregabalin 100 mg capsule See Rx Instructions PO .COMP NISHANT 08/19/24 #90 caps prasugrel HCl 10 mg tablet See Rx Instructions .Route 09/07/24 .COMPLEX #90 tabs metformin 500 mg tablet,extended 500 mg PO BID #180 ta bs 09/09/24 release 24 hr fluticasone fur. 100 mcg-umeclid 1 inh inhalation MILVIA Y #60 ea 09/24/24 62.5 mcg-vilant 25 mcg inhalat.powder (Trelegy Ellipta) montelukast 10 mg tablet 10 mg PO DAILY #90 tabs 09/12 11/05 (Singulair) atorvastatin 80 mg tablet 80 mg PO QPM #90 tabs amitriptyline 100 mg tablet 100 mg PO DAILY #60 tabs 0 02/17/25 cephalexin 500 mg capsule 500 mg PO Q6H 7 days #28 cap s 02/26/25 hydrocodone 5 mg-acetaminophen 325 1 tab PO Q6H PRN pa in #10 tabs 02/26/25 mg tablet Allergies Allergy/AdvReac Type Severity Reaction Status Date / Time gluten Allergy Unknown Verified 02/26/25 16:47 Sulfa (Sulfonamide Allergy ADR-Gastrointestinal Verified 02/26/25 16:47 Antibiotics) Upset Review of Systems Const: Denies: fever(s), chills or body aches Card: Denies: chest pain Resp: Denies: dyspnea Musc: Reports: extremity pain (Left fingers 2 through 4, lacerations) Allen/Lymph: Reports: easy bleeding [facility] ED PFSH: Medical History History of [place] (myocardial infarction) CAD (coronary artery disease) COPD (chronic obstructive pulmonary disease) Diabetes mellitus Hyperlipidemia GERD (gastroesophageal reflux disease) Surgical History S/P coronary angiogram History of back surgery S/P bariatric surgery S/P knee surgery S/P appendectomy S/P rotator cuff repair H/O thumb surgery Family History Mother Hypertension Diabetes Brother Lung disease COPD-smoker Other Hyperlipidemia Denies family history of CAD (coronary artery disease) Clotting disorder Dementia Psychiatric illness Chronic kidney disease (CKD) Anesthesia complication Bleeding disorder Cancer Stroke Social History Smoking and tobacco/nicotine status: former use of tobacco/nicotine Quit status (tobacco/nicotine): has quit using Year quit tobacco: 2016 Former quit date comment: 2ppd x 45 year Hx Alcohol intake: current Alcohol intake frequency: holidays/special occasions only Substance/Drug Use: never Lives independently: Yes Marital status: Current occupational status: retired Mikala/Yazdanism: Sikhism Special mikala needs: No Agree to transfusion: Yes Physical Exam Const: COMMON NORMALS: no acute distress, patient oriented x3 and alert GENERAL APPEARANCE: cooperative ORIENTATION/CONSCIOUSNESS: Yes awake OTHER: Patient is ambulatory to the exam room unassisted. He is sitting upright on the stretcher in no acute distress. He is able to give history with no difficulty. He is interactive with exam appropriately. Family is at bedside HENMT: COMMON NORMALS: normocephalic and atraumatic HEAD & SCALP: normocephalic and atraumatic Chest: CHEST: Yes Symmetrical chest wall rise Resp: COMMON NORMALS: normal respiratory effort EFFORT & INSPECTION: Yes able to speak in complete sentences Extremity: LEFT UPPER EXTREMITY: Yes hand & digits OTHER: Avulsion of portion of left fourth digit tip as well as distal portion of the nail, laceration of the left third digit, volar aspect, laceration of left second digit, volar aspect. Bleeding is controlled at this time. Neuro: COMMON NORMALS: patient oriented x3 SENSORIUM/ORIENTATION: Yes alert Psych: COMMON NORMALS: cooperative Procedures Laceration Laceration 1: Site: hand (index finger) Side (If applicable): left Size (cm): 3 Description: linear Depth: simple, single layer Local Anesthetic: lidocaine 1% and bupivacaine 0.5% Amount of anesthesia used (mL): 3 (digit block) Pre-repair: wound explored, irrigated extensively and deep structures intact Skin layer closed with: nylon Size (cm): 4-0 Number of sutures: 5 Technique: simple, interrupted Laceration 2: Site: hand (middle digit) Side (If applicable): left Size (cm): 3.5 Description: linear Depth: simple, single layer Local Anesthetic: lidocaine 1% and bupivacaine 0.5% Amount of anesthesia used (mL): 3 (digit block) Pre-repair: wound explored and irrigated extensively Skin layer closed with: nylon Size (cm): 4-0 Number of sutures: 5 Technique: simple, interrupted Nerve Block Nerve Block 1: Local Anesthetic: lidocaine 1% and bupivacaine 0.5% Amount of anesthesia used (mL): 3 Side: left Nerve Blocks: digital (ring) Procedure Successful: Yes Patient Tolerated Procedure: well Complications: none Additional Comments: traumatic amputation soft tissue, nail involvement Course Vital Signs: Vital signs: Vital Signs Temperature 98.2 F 02/26/25 16:44 Pulse Rate 68 02/26/25 19:49 Respiratory Rate 16 02/26/25 18:49 Blood Pressure 129/91 02/26/25 19:49 Pulse Oximetry 100 02/26/25 19:49 Oxygen Delivery Me thod Room Air 02/26/25 18:49 MDM - Wound/Laceration Medical Decision Making 64yo male presents with family for evaluation of left hand injury that occurred while he was using his table saw. Patient reports that the cell got away from him and he did cut the fingers of his left hand. States that he is on blood thinners. Reports he is right-hand dominant. Unsure when last tetanus, but knows it has been greater than 3 years. Patient denies any other injury or concern at this time. Patient is nontoxic in appearance. Vital signs are stable. Independent review of x-ray does reveal a distal phalanx fracture of the index finger, pending radiology review. Pain control through digit block of the index, middle, and ring finger. Sutures placed to the index and middle fingers, traumatic soft tissue amputation of the ring finger was dressed. Discussed wound care. Cephalexin prescribed and first dose provided while in the emergency department. Short course pain medication was sent to patient's pharmacy as well, sedation precautions provided. A referral was placed to Dr. Blackburn (patient requested) for further evaluation and recheck of the wounds. Advised to follow-up as soon as possible. Return precautions provided as well. Patient and family state understanding and have no further questions or concerns at this time. Medical Records I reviewed the patient's medical records. Lab Data Radiology Impressions Hand X-Ray 02/26/25 16:32 IMPRESSION: Comminuted fracture in the volar tip of the 2nd distal phalanx. All radiology interpretation(s) finalized by discharge Discharge Plan Discharge Patient Disposition: Home Clinical Impression: Contact with powered saw as cause of accidental injury Open fracture of distal phalanx of left index finger Qualifiers: Encounter type: initial encounter Fracture alignment: displaced Qualified Code(s): S62.631B - Displaced fracture of distal phalanx of left index finger, initial encounter for open fracture Traumatic amputation of tip of left ring finger Qualifiers: Encounter type: initial encounter Qualified Code(s): S68.115A - Complete traumatic metacarpophalangeal amputation of left ring finger, initial encounter Laceration of left middle finger Qualifiers: Encounter type: initial encounter Damage to nail status: without damage Foreign body presence: without foreign body Qualified Code(s): S61.213A - Laceration without foreign body of left middle finger without damage to nail, initial encounter Condition: Stable Prescriptions: New cephalexin 500 mg capsule 500 mg PO Q6H 7 Days Qty: 28 0RF hydrocodone-acetaminophen 5-325 mg tablet 1 tab PO Q6H PRN (Reason: pain) Qty: 10 0RF Discontinued hydrocodone-acetaminophen 5-325 mg tablet 1 tab PO BID PRN (Reason: pain) 21 Days Qty: 42 0RF No Action nitroglycerin [Nitrostat] 0.4 mg tablet, sublingual 0.4 mg SUBLINGUAL Q5M PRN (Reason: Chest Pain) Qty: 25 3RF Rx Instructions: do not exceed 3 doses per episode (DME) Diabetic Shoes with 3 sets of insoles See Rx Instructions .Route .MEDSUPPLY Qty: 1 0RF Rx Instructions: As directed by [facility] potassium gluconate 600 mg (99 mg) tablet 600 mg PO DAILY (DME) Acapella See Rx Instructions .Route .MEDSUPPLY Qty: 1 0RF Rx Instructions: As directed (DME) Custom Thumb Spika Splint See Rx Instructions .Route .MEDSUPPLY Qty: 1 0RF Rx Instructions: As directed cetirizine [Zyrtec] 10 mg tablet 10 mg PO DAILY PRN (Reason: allergy symptoms) Qty: 30 0RF albuterol sulfate 90 mcg/actuation HFA aerosol inhaler 2 puff inhalation Q6H PRN (Reason: shortness of breath or wheezing) Qty: 6.7 0RF metoprolol succinate 25 mg tablet extended release 24 hr 25 mg PO BEDTIME Qty: 90 3RF pregabalin 100 mg capsule See Rx Instructions PO .COMPLEX Qty: 90 3RF Rx Instructions: take 1 tablet three times a day going further prasugrel HCl 10 mg tablet See Rx Instructions .ROUTE .COMPLEX Qty: 90 3RF Dose Instruction: TAKE ONE TABLET BY MOUTH DAILY Rx Instructions: TAKE ONE TABLET BY MOUTH DAILY metformin 500 mg tablet extended release 24 hr 500 mg PO BID Qty: 180 1RF Trelegy Ellipta 100-62.5-25 mcg blister with device 1 inh inhalation DAILY Qty: 60 6RF montelukast [Singulair] 10 mg tablet 10 mg PO DAILY Qty: 90 1RF atorvastatin 80 mg tablet 80 mg PO QPM Qty: 90 3RF amitriptyline 100 mg tablet 100 mg PO DAILY Qty: 60 1RF famotidine [Pepcid] 20 mg Tablet 20 mg PO DAILY aspirin 325 mg Capsule 325 mg PO DAILY Men's 50 Plus Multivitamin 400-20-370 mcg Tablet 1 tab PO DAILY Discharge Orders: Discharge ED (Routine); Ordered 02/26/25 Ordered By: Don Wharton Referrals: Enrique Collins MD [Primary Care Provider, [facility]] Discharge Diet: Usual diet Discharge Activity: Increase activity as tolerated Patient Instructions: Opioid Safety, Pain Management Activity Restrictions/Additional Instructions: A referral has been placed to Dr. Blackburn for follow-up of the hand injury Cephalexin has been sent to your pharmacy to help prevent infection of the area A short course of pain medications have been prescribed to use on an as-needed basis for moderate to severe pain. Please do not drive or operate [employer] while taking pain medications Gently wash the wounds with soap and water. 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
[2025-02-26] MEDS: lidocaine 1% 10 ML INJ XX (17:21)
[2025-02-26] MEDS: tetanus-dipt-pertussis 0.5 mL SDV IM (17:21)
[2025-02-26] MEDS: BUPivacaine 0.5% INJ 10 mL XX (17:34)
[2025-02-26 18:49] VITALS: BP 120/83; PULSE 75; RESP 16; O2SAT 97
[2025-02-26] MEDS: cephALEXin 500 mg Capsule PO (19:31)
[2025-02-26 19:49] VITALS: BP 129/91; PULSE 68; O2SAT 100
--- NOTE | 2025-02-27 07:49 | DCPLANNER ---
messaged ortho for er f/u
== END 2025-02-26 19:57 | disposition home or self-care (01) ==
PROVIDERS: Emergency Provider Nurse Practitioner; PCP Family Medicine
DX: S68.115A Complete traumatic metacarpophalangeal amputation of left ring finger, initial encounter (principal); S62.631B Displaced fracture of distal phalanx of left index finger, initial encounter for open fracture; S61.213A Laceration without foreign body of left middle finger without damage to nail, initial encounter; W27.0XXA Contact with workbench tool, initial encounter; Z79.84 Long term (current) use of oral hypoglycemic drugs; Z79.82 Long term (current) use of aspirin; Z87.891 Personal history of nicotine dependence; I25.10 Atherosclerotic heart disease of native coronary artery without angina pectoris; J44.9 Chronic obstructive pulmonary disease, unspecified; E11.9 Type 2 diabetes mellitus without complications; E78.5 Hyperlipidemia, unspecified
CPT/HCPCS: 12002; 73130; 90471; 90715; 99284; J3490; J9999

== ENCOUNTER → 2025-02-27 10:18 | Outpatient (BNVA) | payer MEDICARE, SELFPAY | PROVIDERS: PCP Family Medicine; Referring Provider Nurse Practitioner; Visit Provider Orthopaedic Surgery | DX: S62.661A Nondisplaced fracture of distal phalanx of left index finger, initial encounter for closed fracture (principal); S61.213A Laceration without foreign body of left middle finger without damage to nail, initial encounter; S61.210A Laceration without foreign body of right index finger without damage to nail, initial encounter; S61.214A Laceration without foreign body of right ring finger without damage to nail, initial encounter; X58.XXXA Exposure to other specified factors, initial encounter | CPT/HCPCS: 99204 ==

== ENCOUNTER → 2025-03-10 08:37 | Outpatient (BNVA) | payer MEDICARE, SELFPAY | PROVIDERS: PCP Family Medicine; Visit Provider Orthopaedic Surgery | DX: Z98.890 Other specified postprocedural states (principal) | CPT/HCPCS: 99213 ==

== ENCOUNTER → 2025-04-07 08:21 | Outpatient (BNVA) | payer MEDICARE, SELFPAY | PROVIDERS: PCP Family Medicine; Visit Provider Orthopaedic Surgery | DX: Z98.890 Other specified postprocedural states (principal); S68.115A Complete traumatic metacarpophalangeal amputation of left ring finger, initial encounter; S68.113A Complete traumatic metacarpophalangeal amputation of left middle finger, initial encounter; S68.117A Complete traumatic metacarpophalangeal amputation of left little finger, initial encounter; W31.2XXA Contact with powered woodworking and forming machines, initial encounter | CPT/HCPCS: 99213 ==

== ENCOUNTER → 2025-04-21 16:15 | Outpatient (BNVA) | payer MEDICARE, SELFPAY | PROVIDERS: PCP Family Medicine; Visit Provider Internal Medicine Cardiovascular Disease | DX: I25.10 Atherosclerotic heart disease of native coronary artery without angina pectoris (principal); I10 Essential (primary) hypertension; J44.9 Chronic obstructive pulmonary disease, unspecified; Z87.891 Personal history of nicotine dependence | CPT/HCPCS: 99214 ==

== ENCOUNTER → 2025-07-02 14:34 | Outpatient (BNVA) | payer MEDICARE, SELFPAY | PROVIDERS: PCP Family Medicine; Visit Provider Family Medicine | DX: I25.10 Atherosclerotic heart disease of native coronary artery without angina pectoris (principal); E11.9 Type 2 diabetes mellitus without complications; I11.0 Hypertensive heart disease with heart failure; I50.20 Unspecified systolic (congestive) heart failure | CPT/HCPCS: 80053; 80061; 83036; 83880; 84439; 84443; 85025 ==

== ENCOUNTER 2025-07-10 09:06 | Outpatient (CLI) | payer MEDICARE, SELFPAY ==
[2025-07-10 09:24] VITALS: BMI 26.1
--- NOTE | 2025-07-10 09:24 | ECG_ITS ---
[facility] Test Date: 2025-07-10 Pat Name: Haroon Brock Department: Room: Gender: Male Punch Box Tender: : 1960 Requested By: Enrique Collins Order Number: [id number] Flores MD: Jemal Barros M.D. Interpretive Statements procedure: A total of 0.4 mg of Lexiscan was infused over 20 seconds. The stress phase was continued for a total of 5 minutes. Sestamibi was injected 20 seconds after the Lexiscan infusion. Findings: The patient's resting blood pressure was 104/52 mmHg with a heart rate of 67 bpm. Resting EKG showed normal sinus rhythm with low voltage right bundle branch block and left anterior fascicular block. The patient's blood pressure decreased to a low of 78/57 mmHg after Lexiscan injection. Heart rate gradually increased to 90 bpm. At the end of recovery the patient's blood pressure was 118/71 with a heart rate of [address]pm[address] There were no ST changes during the stress test. No arrhythmias occurred. Conclusion: 1. Normal EKG response to Lexiscan infusion 2. No Lexiscan induced chest pain or cardiac arrhythmia. 3. Normal heart rate response. Hypotensive blood pressure response to Lexiscan. 4. Nuclear myocardial perfusion scan pending; see separate report. Electronically Signed On 07-10-2025 13:18:23 CDT by Jemal Barrso M.D. [email or web address]
--- NOTE | 2025-07-10 09:24 | NMCV_ITS ---
NM purvi perf SPECT r/s* [id number] Haroon Brock Age: 65 Gender: M : 1960 Exam Date: 07/10/2025 10:01 Ordering Phys: Enrique Collins MD Technologist: PETRA Brooks Exam Location: [facility] Indications: cp STRESS TEST Please see separate stress test report in [facility] for full findings IMAGE PROTOCOL Rest/Stress 1 Lexiscan Day Radiopharmaceutical Dose (mCi) Administration Site Administered by Rest: Tc-99m 10.8 IV PETRA Brooks Sestamibi Stress:Tc-99m 32.7 IV PETRA Rogers Sestamibi Rest: 10-Jul-2025 60 Discovery 630 Stress: 10-Jul-2025 15 Discovery 630 Images obtained in supine and prone position. 0.4mg Lexiscan. SPECT RESULTS Technical Quality: Good Raw Data Analysis: Normal Image Corrections: No attenuation or motion correction applied Summed Stress Score: 11 Summed Rest Score: 13 Summed Difference Score: 0 PERFUSION FINDINGS There is a large area of severely reduced tracer counts in the inferior wall which is fixed on the stress compared to the rest images. This finding is consistent with either a myocardial infarction versus diaphragmatic attenuation artifact. In reviewing the gated images the wall motion appears normal in this area making the defect more likely artifact. FUNCTIONAL RESULTS (calculated via Gated SPECT) Stress Image LV EF (%): 68 Stress EDV (mL):84 TID: 0.98 Stress ESV (mL):27 FUNCTIONAL FINDINGS: There is normal left ventricular systolic function, EF 68%. IMPRESSIONS 1. Myocardial perfusion imaging consistent with infarction versus attenuation artifact in the inferior wall. Inferior wall wall motion appears normal making the defect more likely attenuation artifact and not infarction. There is no inducible ischemia. 2. There is normal left ventricular systolic function, EF 68% Jemal Barros MD, FACC (Electronically Signed) Final Date: 10 July 2025 12:29 S
[2025-07-10] MEDS: aminophylline 25 mg/mL SDV 20 mL IVP (11:08)
[2025-07-10 12:14] VITALS: BP 122/80; PULSE 75
== END 2025-07-10 09:07 | disposition home or self-care (01) ==
PROVIDERS: Family Provider Internal Medicine; PCP Family Medicine; Visit Provider Family Medicine
DX: R07.9 Chest pain, unspecified (principal)
CPT/HCPCS: 36415; 78452; 93017; 96374; 96375; A9500; J0280; J2785

== ENCOUNTER → 2025-08-15 09:36 | Outpatient (BNVA) | payer MEDICARE, SELFPAY | PROVIDERS: Family Provider Internal Medicine; PCP Family Medicine; Referring Provider Family Medicine; Visit Provider Internal Medicine | DX: J43.9 Emphysema, unspecified (principal); J47.9 Bronchiectasis, uncomplicated; R91.8 Other nonspecific abnormal finding of lung field; Z87.01 Personal history of pneumonia (recurrent); Z87.891 Personal history of nicotine dependence | CPT/HCPCS: 99214; Q3014 ==

== ENCOUNTER 2025-08-26 07:50 | Outpatient (CLI) | payer MEDICARE, SELFPAY ==
--- NOTE | 2025-08-26 08:00 | CT_ITS ---
WS: [id number] LDCT LUNG CANCER SCREENING TECHNIQUE: Noncontrast CT of the chest with coronal and sagittal reformatted images. CLINICAL INFORMATION: Lung screen COMPARISON: 2023 DLP: 70.21 mGy.cm DIvol: Mean CTDIvol: 1.30 (mGy) All CT scans at [facility] use at least one of these dose optimization techniques: automated exposure control; mA and/or kV adjustment per patient size (includes targeted exams where dose is matched to clinical indication); or iterative reconstruction. FINDINGS: Stable cystic bronchiectasis LEFT lower lobe. Subsegmental atelectasis both lower lobes. Moderate chronic emphysematous changes. A few tiny stable scattered micronodules. 4 mm LEFT perifissural nodule Normal caliber thoracic aorta. Aortic calcification. No mediastinal or hilar lymphadenopathy. Coronary calcification. No axillary lymphadenopathy. Small esophageal hiatal hernia. Postoperative changes involving the stomach and GE junction. Mild thoracic curve. Mild thoracic kyphosis. Stable RIGHT renal cortical cyst CT/CT lung screening [id number] IMPRESSION: LUNG-RADS: 2-Benign Appearance or Behavior FOLLOW UP: 12 Month: Continue annual screening with LDCT
== END 2025-08-26 07:51 | disposition home or self-care (01) ==
LOC: RAD 07:51
PROVIDERS: Family Provider Internal Medicine; PCP Family Medicine; Visit Provider Internal Medicine
DX: Z12.2 Encounter for screening for malignant neoplasm of respiratory organs (principal); F17.211 Nicotine dependence, cigarettes, in remission; J47.9 Bronchiectasis, uncomplicated; J98.11 Atelectasis; I25.84 Coronary atherosclerosis due to calcified coronary lesion; K44.9 Diaphragmatic hernia without obstruction or gangrene; K91.89 Other postprocedural complications and disorders of digestive system; M40.204 Unspecified kyphosis, thoracic region; N28.1 Cyst of kidney, acquired; M43.8X4 Other specified deforming dorsopathies, thoracic region
CPT/HCPCS: 71271